=== PATIENT | female | born 1930 | race Caucasian/White ===

== ENCOUNTER 2017-01-30 17:09 | Emergency (ER) | payer MEDICARE ==
--- NOTE | 2017-01-30 17:54 | ERPHSYRPT ---
- History of Present Illness Time Seen by Provider: 01/30/17 17:45 Historian: patient Exam Limitations: no limitations Patient Subjective Stated Complaint: states b/p running high today and left arm feels numb Triage Nursing Assessment: ambulated to room per self. skin w/d, color normal, resp easy. heart tones irregular. denies pain. states has hx of afib and it usually goes away but didn't today. Physician History: 86-year-old white female she arrives she tells the nurses that her blood pressure was running high today she tells me that her approximately 2 PM she began to feel pressure in her anterior chest and felt short of breath while vacuuming she states that the pain lasted approximately 15 minutes or shortness of breath with resolved with rest in the back when she became active again. she states she has no pain at this time patient is on Xaralto. 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 Worsens With: antacids, breathing, coughing, defecating, eating, lying down, morphine, movement, nitroglycerin, oxygen, palpation, rest, aspirin, sitting up, change in position Associated Symptoms: shortness of breath, No nausea, No vomiting, No palpitations, No heartburn, No abdominal pain, No cough, No hurts to breathe, No diaphoresis, No chills, No fever, No fatigue, No weakness, No swelling/lump in chest, No syncope, No rash, No headache, No dizziness, No edema, No back pain Prior Chest Pain/Cardiac Workup: cardiac cath Nitro Today/Relief: no nitro taken today Aspirin Treatment Today: no aspirin today (patient is on Xaralto) Allergies/Adverse Reactions: raloxifene HCl [From Evista] Allergy (Mild, Verified 01/30/17 17:23) Fainting VERTIGO REALLY BAD hydrochlorothiazide Allergy (Verified 01/30/17 17:23) Home Medications: Aspirin EC 81 mg 81 mg PO HS 04/18/12 [History] Lopressor 50 MG 100 mg PO BID 04/18/12 [History] Polyethylene Glycol 3350 17 gm [Miralax Powder 17GM PACKET] 17 gm PO BID 10/21 [History] Protonix 40MG Tablet 40 mg PO DAILY 04/18/12 [History] Atorvastatin Calcium [Lipitor] 40 mg PO DAILY 01/30/17 [History] Furosemide 40 mg [Lasix 40 MG] 40 mg PO DAILY 01/30/17 [History] Losartan Potassium 50 mg [Cozaar 50 MG] 50 mg PO DAILY 01/30/17 [History] Multivitamin [Multivitamins] 1 each PO DAILY 01/30/17 [History] Non-Formulary Drug [Non-Formulary Item] 20 mg PO DAILY 01/30/17 [History] Rivaroxaban [Xarelto] 15 mg PO DAILY 01/30/17 [History] Solifenacin Succinate [Vesicare] 10 mg PO DAILY 01/30/17 [History] Hx Tetanus, Diphtheria Vaccination/Date Given: No Hx Influenza Vaccination/Date Given: Yes Hx Pneumococcal Vaccination/Date Given: Yes (2011) - Review of Systems Constitutional: No Fever, No Chills Eyes: No Symptoms Ears, Nose, & Throat: No Symptoms, No Ear Pain, No Ear Discharge, No Hearing Changes, No Tinnitus, No Nose Pain, No Nose Discharge, No Sinus Drainage, No Epistaxis, No Mouth Pain, No Mouth Swelling, No Loose Teeth, No Throat Pain, No Throat Swelling, No Hoarse, No Painful Swallowing Respiratory: Dyspnea, No Cough Cardiac: Chest Pain, Other (paresthesia left arm), No Edema, No Palpitations, No Syncope, No Orthopnea, No PND Abdominal/Gastrointestinal: No Abdominal Pain, No Nausea, No Vomiting, No Diarrhea Genitourinary Symptoms: No Dysuria Musculoskeletal: No Back Pain, No Neck Pain Skin: No Rash Neurological: No Dizziness, No Focal Weakness, No Sensory Changes Psychological: No Symptoms Endocrine: No Symptoms All Other Systems: Reviewed and Negative - Past Medical History Pertinent Past Medical History: Yes Neurological History: No Pertinent History ENT History: No Pertinent History Cardiac History: Arrhythmia, Coronary Artery Disease, Hypertension Respiratory History: Pneumonia Endocrine Medical History: No Pertinent History Musculoskeletal History: Other GI Medical History: Colitis, Ulcer History: Other Psycho-Social History: No Pertinent History Female Reproductive Disorders: Other Other Medical History: URGE INCONTINENCE; 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 - Past Surgical History Past Surgical History: Yes Neuro Surgical History: No Pertinent History Cardiac: Cardiac Catheterization, Other Respiratory: No Pertinent History Gastrointestinal: Bowel Surgery, Cholecystectomy Genitourinary: No Pertinent History Musculoskeletal: Other Female Surgical History: Hysterectomy Other Surgical History: TOTAL HYSTERECTOMY 1961; LUMBAR LAMINECTOMY 1972; TONSILECTOMY 1972; CERVIACL LAMINECTOMY 1975; LUMBAR LAMINECTOMY 1989; GAVINO 1984; CA-RIGHT SIDE OF NOSE; BACK SURERY 2004; FOOT SURGERY ; HEART. CATH TIMES 2; MEDICAL MENISCUS REPAIR 01-18-11; SPASTIC COLON 1970; PNEUMONIA 1974; HTN; DUODINAL ULCER - Social History Smoking Status: Never smoker Exposure to second hand smoke: Yes Drug Use: none Patient Lives Alone: No - Female History Hx Now: No - Nursing Vital Signs Nursing Vital Signs: Initial Vital Signs Temperature 97.4 F 01/30/17 17:13 Pulse Rate 92 H 01/30/17 17:13 Respiratory Rate 16 01/30/17 17:13 Blood Pressure 146/94 01/30/17 17:13 O2 Sat by Pulse Oximetry 95 01/30/17 17:13 Pain Scale Pain Intensity 0 - Physical Exam General Appearance: no apparent distress, alert Eye Exam: PERRL/EOMI, eyes nml inspection Ears, Nose, Throat Exam: normal ENT inspection, moist mucous membranes Neck Exam: normal inspection, non-tender, supple, full range of motion Respiratory Exam: normal breath sounds, lungs clear, No respiratory distress Cardiovascular Exam: regular rate/rhythm, normal heart sounds Gastrointestinal/Abdomen Exam: soft, No tenderness, No mass Back Exam: normal inspection, No CVA tenderness, No vertebral tenderness Extremity Exam: normal inspection, normal range of motion Neurologic Exam: alert, oriented x 3, cooperative, normal mood/affect, sensation nml, No motor deficits Skin Exam: normal color, warm, dry SpO2 Interpretation: normal (95%) SpO2: 95 Oxygen Delivery: Room Air - Course Nursing assessment & vital signs reviewed: Yes EKG Interpreted by Me: RATE (85 bpm), Sinus Rhythm, NORMAL AXIS, Other (EKG: Sinus rhythm, 85 bpm, normal axis, no acute ST or T wave changes arenoted) - Radiology Exams Chest X-ray Interpretation: Interpreted by me (cxr: no acute disease process noted) Ordered Tests: Active Orders 24 hr Category Date Time Status Storage Battery Inspector STAT Care 01/30/17 18:38 Active EKG-ER Only STAT Care 01/30/17 18:38 Active IV Insertion STAT Care 01/30/17 18:38 Active CHEST 1 VIEW (PORTABLE) Stat Exams 01/30/17 18:38 Taken CBC W DIFF Stat Lab 01/30/17 18:00 Completed CMP Stat Lab 01/30/17 18:00 Completed D-DIMER QUANTITATION Stat Lab 01/30/17 18:00 Completed PROTIME WITH INR Stat Lab 01/30/17 18:00 Completed PTT Stat Lab 01/30/17 18:00 Completed TROPONIN Q3H Lab 01/30/17 18:00 Completed TROPONIN Q3H Lab 01/30/17 21:45 Ordered TROPONIN Q3H Lab 01/31/17 00:45 Ordered TROPONIN Q3H Lab 01/31/17 03:45 Ordered TROPONIN Q3H Lab 01/31/17 06:45 Ordered Lab/Rad Data: Laboratory Result Diagrams 01/30/17 18:00 01/30/17 18:00 Laboratory Results 01/30/17 01/30/17 01/30/17 Range/Units 18:00 18:00 18:00 WBC (4.0-10.5) K/mm3 RBC (4.1-5.4) M/mm3 Hgb (12.0-16.0) gm/dl Hct (35-47) % MCV (78-100) fl MCH (26-32) pg MCHC (32-36) g/dl RDW (11.5-14.0) % Plt Count (150-450) K/mm3 MPV (6-9.5) fl Gran % (36.0-66.0) % Lymphocytes % (24.0-44.0) % Monocytes % (0.0-12.0) % Eosinophils % (0.00-5.0) % Basophils % (0.0-0.4) % Basophils # (0-0.4) INR 1.26 (0.8-3.0) APTT 34.7 (25.3-37.0) SECONDS D-Dimer 295 (0-500) ng/mL Sodium 145 (136-145) mEq/L Potassium 3.4 L (3.5-5.1) mEq/L Chloride 106 (98-107) mEq/L Carbon Dioxide 30.2 (21-32) mEq/L Anion Gap 12.1 (5-15) MEQ/L BUN 17 (9-20) mg/dL Creatinine 1.20 (0.55-1.30) mg/dl Estimated GFR 45 ML/MIN Glucose 122 H (70-110) MG/DL Calcium 10.3 H (8.5-10.1) mg/dL Total Bilirubin 0.50 (0.2-1.0) mg/dL AST 20 (15-37) U/L ALT 24 (12-78) U/L Alkaline Phosphatase 80 (46-116) U/L Troponin I < 0.017 (0.000-0.056) ng/ml Serum Total Protein 7.5 (6.4-8.2) gm/dL Albumin 4.0 (3.4-5.0) g/dL 01/30/17 Range/Units 18:00 WBC 7.3 (4.0-10.5) K/mm3 RBC 4.52 (4.1-5.4) M/mm3 Hgb 13.7 (12.0-16.0) gm/dl Hct 41.0 (35-47) % MCV 90.7 (78-100) fl MCH 30.3 (26-32) pg MCHC 33.4 (32-36) g/dl RDW 13.9 (11.5-14.0) % Plt Count 299 (150-450) K/mm3 MPV 10.9 H (6-9.5) fl Gran % 46.8 (36.0-66.0) % Lymphocytes % 42.8 (24.0-44.0) % Monocytes % 8.2 (0.0-12.0) % Eosinophils % 1.2 (0.00-5.0) % Basophils % 1.0 (0.0-0.4) % Basophils # 0.07 (0-0.4) INR (0.8-3.0) APTT (25.3-37.0) SECONDS D-Dimer (0-500) ng/mL Sodium (136-145) mEq/L Potassium (3.5-5.1) mEq/L Chloride (98-107) mEq/L Carbon Dioxide (21-32) mEq/L Anion Gap (5-15) MEQ/L BUN (9-20) mg/dL Creatinine (0.55-1.30) mg/dl Estimated GFR ML/MIN Glucose (70-110) MG/DL Calcium (8.5-10.1) mg/dL Total Bilirubin (0.2-1.0) mg/dL AST (15-37) U/L ALT (12-78) U/L Alkaline Phosphatase (46-116) U/L Troponin I (0.000-0.056) ng/ml Serum Total Protein (6.4-8.2) gm/dL Albumin (3.4-5.0) g/dL - Progress Progress: improved Air Movement: fair Progress Note: 01/30/17 19:14 86-year-old white female with 15 minutes of anterior chest pressure shortness of breath which occurred at approximately 2:00 this afternoon that occurred while patient was actively vacuuming. Patient has been without pain since arrival labs are essentially normal chest x- ray no acute disease processes noted EKG sinus rhythm [address] or T wave changes noted normal axis Troponin is within normal limits Patient was not given aspirin secondary to the fact that she is on xaralto. Patient is pain free. I have advised that I discussed the patient's case with Dr. Coffman for possible consideration of observation and serial enzymes. However patient refuses to do this. I have also recommended possibly staying for 3 hours and repeating troponin patient refuses this as well, I have told the patient that I cannot rule out cardiac etiology for her problems without at least obtaining a 3 hour repeat troponin and that she could have serious cardiac problems she is aware of this and states that she will not be admitted. Will go ahead and discharge patient have patient rest at home. Will give patient one baby aspirin. Patient is advised to return home rest medications as prescribed by her family doctor and fur tinter. And follow-up with her family doctor and/or fur tinter. She is return for acute distress or for severe symptoms. - Departure Time of Disposition: 19:17 Departure Disposition: Home Clinical Impression: Chest pain Qualifiers: Chest pain type: unspecified Qualified Code(s): R07.9 - Chest pain, unspecified Condition: Fair Critical Care Time: No Referrals: YANET COFFMAN MD [Primary Care Provider] - Additional Instructions: Return home. Rest. Follow-up with your family doctor and/or fur tinter. Return for acute distress or for severe symptoms or any problems.
[2017-01-30 18:43] LABS: Eosinophil % 1.2 % (0.00-5.0); Granulocytes % 46.8 % (36.0-66.0); Lymphocytes % 42.8 % (24.0-44.0); Mean Cell Volume 90.7 fl (78-100); Mean Corpuscular Hemoglobin 30.3 pg (26-32); Mean Platelet Volume 10.9 fl (6-9.5); Monocytes % 8.2 % (0.0-12.0); Platelet Count 299 K/mm3 (150-450); Red Blood Count 4.52 M/mm3 (4.1-5.4); Red Cell Distribution Width 13.9 % (11.5-14.0); White Blood Count 7.3 K/mm3 (4.0-10.5)
[2017-01-30 18:47] LABS: INR 1.26 (0.8-3.0); PROTIME 14.1 SECONDS (9.95-12.35)
[2017-01-30 18:49] LABS: PTT 34.7 SECONDS (25.3-37.0)
[2017-01-30 18:54] LABS: ANION GAP 12.1 MEQ/L (5-15); BILIRUBIN,TOTAL 0.5 mg/dL (0.2-1.0); Carbon Dioxide 30.2 mEq/L (21-32); Potassium 3.4 mEq/L (3.5-5.1); Total Protein 7.5 gm/dL (6.4-8.2)
[2017-01-30] MEDS ORDERED: BABY ASPIRIN 81 MG CHEW ONE (19:17)
[2017-01-30] MEDS ORDERED: BABY ASPIRIN 81 MG CHEW PO ONE (19:18)
[2017-01-30 19:34] VITALS: BP 141/65; PULSE 75; O2SAT 94
--- NOTE | 2017-01-30 22:31 | XRAY ---
Indication: Chest pain. High blood pressure. Comparison: April 18, 2012. Portable chest again demonstrates right mid lung fibrosis/scarring and a few scattered calcified granulomas. No focal infiltrate, consolidation, or large effusion. Heart is not enlarged. Bony thorax intact again with mild degenerative changes. Impression: Stable nonacute chest with chronic features.
[2017-01-31] MEDS ORDERED: BABY ASPIRIN 81 MG CHEW PO SCH (10:00)
== END 2017-01-30 19:45 | disposition home or self-care (01) ==
LOC: ED 17:09
DX: R07.89 Other chest pain (principal); I10 Essential (primary) hypertension; R20.0 Anesthesia of skin; R06.02 Shortness of breath; I25.10 Atherosclerotic heart disease of native coronary artery without angina pectoris; Z79.01 Long term (current) use of anticoagulants; Z79.899 Other long term (current) drug therapy
CPT/HCPCS: 36000; 36415; 71010; 80053; 84484; 85025; 85379; 85610; 85730; 93005; 93041; 99284; A9270-GY

== ENCOUNTER 2017-10-25 16:39 | Inpatient (IN) | payer MEDICARE ==
[2017-10-25] MEDS ORDERED: Colace 100 MG PO PRN (20:32)
[2017-10-25] MEDS: MOTRIN 400 MG PO PRN (22:35)
[2017-10-25] MEDS: Lopressor 50 MG PO SCH (22:35)
[2017-10-25] MEDS: ZOCOR 20MG PO SCH (22:35)
--- NOTE | 2017-10-25 22:43 | XRAY ---
Indication: Short of breath. Atrial fibrillation. Comparison: January 30, 2017. Portable chest now demonstrates right hemidiaphragm elevation with adjacent infiltrate/atelectasis. No focal infiltrate, consolidation, or large effusion. Again a few tiny scattered calcific granulomas. Heart is not enlarged for AP portable technique. Bony thorax intact again with mild osteopenia and degenerative changes. Impression: New right hemidiaphragm elevation with adjacent infiltrate/atelectasis. Correlate clinically.
[2017-10-26] MEDS: Oxy-IR 5 MG PO PRN (04:02)
[2017-10-26] MEDS ORDERED: NON-FORMULARY ITEM (Solifenacin Succinate [Vesicare] 10 MG) PO PRN (07:52)
[2017-10-26] MEDS ORDERED: Ditropan 5 MG PO PRN (08:02)
[2017-10-26] MEDS ORDERED: MEDICATION INTERVENTION MC SCH (08:45)
[2017-10-26] MEDS ORDERED: NON-FORMULARY ITEM (Aspirin [Aspirin] 81 MG) PO SCH (10:00)
[2017-10-26] MEDS ORDERED: Aplisol ID SCH (10:00)
[2017-10-26] MEDS ORDERED: [UNRECOGNIZED DRUG - OTHER] PO SCH (10:00)
[2017-10-26] MEDS ORDERED: NON-FORMULARY ITEM (Famotidine [Pepcid] 40 MG) PO SCH (10:00)
[2017-10-26] MEDS ORDERED: NON-FORMULARY ITEM (Multivitamin [Multivitamins] 1 EACH) PO SCH (10:00)
--- NOTE | 2017-10-26 10:13 | PCM.HP ---
History of Present Illness - Chief Complaint Chief Complaint: Deconditioning r/t total right knee, ileus, a-fib History of Present Illness: is a 86 year old female who is status post right total knee replacement , she has a history of gastroparesis and had a postoperative ileus, also has a history of a fib and has had RVR. has heart rate 120-130 since arrival. no chest pain or palpitations, knee pain is controlled. - Review of Systems Constitutional: No Fever, No Chills Respiratory: No Cough, No Short Of Breath Cardiac: No Chest Pain, No Edema, No Syncope Abdominal/Gastrointestinal: No Abdominal Pain, No Nausea, No Vomiting, No Diarrhea Musculoskeletal: Joint Pain Skin: No Rash All Other Systems: Reviewed and Negative Medications & Allergies Home Medications: Home Medication List Atorvastatin Calcium [Lipitor] 40 mg PO HS 01/30/17 [History Confirmed 10/25/17] Furosemide 40 mg [Lasix 40 MG] 40 mg PO DAILY PRN PRN 01/30/17 [History Confirmed 10/25/17] Losartan Potassium 50 mg [Cozaar 50 MG] 50 mg PO DAILY 01/30/17 [History Confirmed 10/25/17] Multivitamin [Multivitamins] 1 each PO DAILY 01/30/17 [History Confirmed ] Aspirin 81 mg PO DAILY 10/25/17 [History Confirmed 10/25/17] Docusate Sodium 100 mg [Colace 100 MG] 100 mg PO DAILY PRN PRN 10/25/17 [ History Confirmed 10/25/17] Famotidine [Pepcid] 40 mg PO DAILY 10/25/17 [History Confirmed 10/25/17] Ibuprofen 400 mg PO QIDPRN PRN 10/25/17 [History Confirmed 10/25/17] Metoprolol Tartrate [Lopressor] 150 mg PO BID 10/25/17 [History Confirmed ] Mupirocin [Bactroban OINTMENT] 0 gm TOP BID 10/25/17 [History Confirmed ] Non-Formulary Drug [Non-Formulary Item] 20 mg PO DAILY 10/25/17 [History Confirmed 10/25/17] Oxycodone HCl 5 mg Ir [Oxy-IR 5 MG] 10 mg PO Q6HPRN PRN 10/25/17 [History Confirmed 10/25/17] Pantoprazole Sodium [Protonix] 40 mg PO DAILY 10/25/17 [History Confirmed ] Polyethylene Glycol 3350 [Miralax] 17 gm PO DAILY 10/25/17 [History Confirmed ] Rivaroxaban 10 mg Tablet [Xarelto 10 mg Tablet] 15 mg PO HS 10/25/17 [ History Confirmed 10/25/17] Solifenacin Succinate [Vesicare] 10 mg PO DAILY PRN PRN 10/25/17 [History Confirmed 10/25/17] Allergies/Adverse Reactions: Allergies Allergy/AdvReac Type Severity Reaction Status Date / Time raloxifene HCl [From Evista] Allergy Mild Fainting Verified 10/25/17 17:55 hydrochlorothiazide Allergy Verified 10/25/17 17:55 - Past Medical History Past Medical History: Yes Neurological History: No Pertinent History ENT History: No Pertinent History Cardiac History: Arrhythmia, Coronary Artery Disease, Hypertension Respiratory History: Pneumonia Endocrine Medical History: No Pertinent History Musculoskelatal History: Other GI Medical History: Colitis, Ulcer History: Other Pyscho-Social History: No Pertinent History Reproductive Disorders: Other Comment: URGE INCONTINENCE; 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 - Female History Are you now?: No - Past Surgical History Past Surgical History: Yes Neuro Surgical History: No Pertinent History Cardiac History: Cardiac Catheterization, Other Respiratory Surgery: No Pertinent History GI Surgical History: Bowel Surgery, Cholecystectomy Genitourinary Surgical Hx: No Pertinent History Musculskeletal Surgical Hx: Other Female Surgical History: Hysterectomy Other Surgical History: TOTAL HYSTERECTOMY 1961; LUMBAR LAMINECTOMY 1972; TONSILECTOMY 1972; CERVIACL LAMINECTOMY 1975; LUMBAR LAMINECTOMY 1989; GAVINO 1984; CA-RIGHT SIDE OF NOSE; BACK SURERY 2004; FOOT SURGERY ; HEART. CATH TIMES 2; MEDICAL MENISCUS REPAIR 01-18-11; SPASTIC COLON 1970; PNEUMONIA 1974; HTN; DUODINAL ULCER right total knee replacement - Social History Smoking Status: Never smoker Exposure to second hand smoke: Yes Alcohol: None Drug Use: none - Physical Exam Vital Signs: Vital Signs - 24 hr Temp Pulse Resp BP Pulse Ox 10/26/17 07:28 98.3 F 124 H 19 111/65 95 10/25/17 19:42 97.9 F 133 H 18 120/60 96 10/25/17 17:47 97.7 F 128 H 20 147/77 95 10/25/17 17:18 97.7 F 128 H 20 147/77 95 10/25/17 17:08 97.7 F 128 H 20 147/77 95 General Appearance: no apparent distress Neurologic Exam: alert, oriented x 3 Neck Exam: normal inspection, non-tender, supple, full range of motion Respiratory Exam: normal breath sounds, lungs clear, No respiratory distress Cardiovascular Exam: tachycardia, irregular Gastrointestinal/Abdomen Exam: soft, normal bowel sounds, No tenderness, No mass Extremity Exam: normal inspection, normal range of motion, pelvis stable Skin Exam: normal color, warm, dry, No rash Results - Radiology Impressions Radiology Exams & Impressions: Radiology Procedures Category Date Time Status CHEST 1 VIEW (PORTABLE) Routine Exams 10/25/17 18:30 Completed Assessment/Plan (1) Atrial fibrillation with RVR Current Visit: Yes Status: Acute Assessment & Plan: will add digoxin 0.125mg daily for rate control, on large dose of metoprolol with persistent tachycardia and bp won't allow increase in beta [place] Code(s): I48.91 - UNSPECIFIED ATRIAL FIBRILLATION (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
[2017-10-26] MEDS: Lopressor 50 MG PO SCH ×2 (10:42→22:06)
[2017-10-26] MEDS: Lanoxin 0.125MG TABLET PO SCH (10:42)
[2017-10-26] MEDS: THERAGRAN MULTIVITAMIN PO SCH (10:43)
[2017-10-26] MEDS: Protonix 40MG Tablet PO SCH (10:43)
[2017-10-26] MEDS: Pepcid 20 MG PO SCH (10:43)
[2017-10-26] MEDS: Cozaar 50 MG PO SCH (10:43)
[2017-10-26] MEDS: ECOTRIN 81 MG PO SCH (10:43)
[2017-10-26] MEDS: Miralax Powder 17GM PACKET PO SCH (10:48)
[2017-10-26] MEDS: Bactroban OINTMENT TOP SCH ×2 (14:39→22:08)
[2017-10-26] MEDS ORDERED: ZOFRAN ODT 4 MG PO PRN (21:05)
[2017-10-26] MEDS: XARELTO 10 MG TABLET PO SCH (22:03)
[2017-10-26] MEDS: ZOCOR 20MG PO SCH (22:07)
[2017-10-27] MEDS: Oxy-IR 5 MG PO PRN (09:37)
[2017-10-27] MEDS: Miralax Powder 17GM PACKET PO SCH (09:50)
[2017-10-27] MEDS: THERAGRAN MULTIVITAMIN PO SCH (09:51)
[2017-10-27] MEDS: Bactroban OINTMENT TOP SCH ×2 (09:51→22:12)
[2017-10-27] MEDS: Lopressor 50 MG PO SCH ×2 (09:52→22:12)
[2017-10-27] MEDS: Lanoxin 0.125MG TABLET PO SCH (09:52)
[2017-10-27] MEDS: Pepcid 20 MG PO SCH (09:52)
[2017-10-27] MEDS: Cozaar 50 MG PO SCH (10:01)
[2017-10-27] MEDS: ECOTRIN 81 MG PO SCH (10:01)
[2017-10-27] MEDS: Protonix 40MG Tablet PO SCH (10:01)
[2017-10-27] MEDS ORDERED: Lopressor 50 MG PO ONE (12:09)
[2017-10-27] MEDS: MOTRIN 400 MG PO PRN (19:00)
[2017-10-27] MEDS: XARELTO 10 MG TABLET PO SCH (22:13)
[2017-10-27] MEDS: ZOCOR 20MG PO SCH (22:13)
[2017-10-28 05:58] LABS: BASOPHIL % 0.7 % (0.0-0.4); Basophil (Absolute #) 0.06 (0-0.4); Eosinophil % 1.1 % (0.00-5.0); Eosinophil (Absolute #) 0.09 (0-0.5); Granulocyte Absolute (ANC) 5.61 (1.4-6.9); Granulocytes % 67.4 % (36.0-66.0); Hematocrit 31.8 % (35-47); Hemoglobin 10.5 gm/dl (12.0-16.0); Lymphocyte (Absolute #) 1.74 (1.0-4.6); Lymphocytes % 20.9 % (24.0-44.0); Mean Cell Volume 92.4 fl (78-100); Mean Corpuscular Hemoglobin 30.5 pg (26-32); Mean Platelet Volume 9.4 fl (6-9.5); Monocyte (Absolute #) 0.82 (0.0-1.3); Monocytes % 9.9 % (0.0-12.0); Platelet Count 418 K/mm3 (150-450); Red Blood Count 3.44 M/mm3 (4.1-5.4); Red Cell Distribution Width 14.9 % (11.5-14.0); White Blood Count 8.3 K/mm3 (4.0-10.5)
[2017-10-28 06:26] LABS: ANION GAP 9.1 MEQ/L (5-15); BLOOD UREA NITROGEN 16 mg/dL (7-17); CHLORIDE 100 mmol/L (98-107); Calcium 9.8 mg/dL (8.4-10.2); Carbon Dioxide 30 mmol/L (22-30); Creatinine 1 0.75 mg/dL (0.52-1.04); Glucose 115 mg/dL (74-106); Potassium 3.6 mmol/L (3.5-5.1); SODIUM 135 mmol/L (137-145)
--- NOTE | 2017-10-28 07:59 | PCM.NOTE ---
Date and Time: 10/28/17 0757 Subjective Assessment: doing well, able to get up out of bed on her own now. heart rate is better controlled Objective Exam General Appearance: no apparent distress, alert Skin Exam: normal color, warm, dry Respiratory Exam: normal breath sounds, lungs clear, No respiratory distress Cardiovascular Exam: tachycardia, irregular Gastrointestinal/Abdomen Exam: soft, No tenderness, No mass Extremity Exam: normal inspection, normal range of motion, other (right knee bruising, dressing c/d/i) OBJECTIVE DATA Vital Signs: Vital Signs - 24 hr Temp Pulse Resp BP BP Pulse Ox 10/27/17 20:07 97.9 F 112 H 20 135/60 96 10/27/17 09:52 126 H 128/64 Pain Assessment - Last Documented Pain Intensity 3 [facility]ake and Output: Intake & Output 10/25/17 10/26/17 10/27/17 10/28/17 11:59 11:59 11:59 11:59 Intake Total 460 1240 660 Balance 460 1240 660 Weight 93.9 kg Lab Results: Lab Results-Last 24 Hours 10/28/17 10/28/17 10/28/17 Range/Units 05:45 05:45 05:45 WBC 8.3 (4.0-10.5) K/mm3 RBC 3.44 L (4.1-5.4) M/mm3 Hgb 10.5 L (12.0-16.0) gm/dl Hct 31.8 L (35-47) % MCV 92.4 (78-100) fl MCH 30.5 (26-32) pg MCHC 33.0 (32-36) g/dl RDW 14.9 H (11.5-14.0) % Plt Count 418 (150-450) K/mm3 MPV 9.4 (6-9.5) fl Gran % 67.4 H (36.0-66.0) % Eos # (Auto) 0.09 (0-0.5) Absolute Lymphs (auto) 1.74 (1.0-4.6) Absolute Monos (auto) 0.82 (0.0-1.3) Lymphocytes % 20.9 L (24.0-44.0) % Monocytes % 9.9 (0.0-12.0) % Eosinophils % 1.1 (0.00-5.0) % Basophils % 0.7 (0.0-0.4) % Absolute Granulocytes 5.61 (1.4-6.9) Basophils # 0.06 (0-0.4) Sodium 135 L (137-145) mmol/L Potassium 3.6 (3.5-5.1) mmol/L Chloride 100 (98-107) mmol/L Carbon Dioxide 30 (22-30) mmol/L Anion Gap 9.1 (5-15) MEQ/L BUN 16 (7-17) mg/dL Creatinine 0.75 (0.52-1.04) mg/dL Estimated GFR > 60.0 ML/MIN Glucose 115 H (74-106) mg/dL Calcium 9.8 (8.4-10.2) mg/dL Digoxin 0.7 L (0.8-1.9) ng/mL Assessment/Plan (1) Atrial fibrillation with RVR Current Visit: Yes Status: Acute Assessment & Plan: better controlled with increase in metoprolol per Dr Graham Code(s): I48.91 - UNSPECIFIED ATRIAL FIBRILLATION (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
[2017-10-28] MEDS: Lanoxin 0.125MG TABLET PO SCH (09:23)
[2017-10-28] MEDS: Cozaar 50 MG PO SCH (09:23)
[2017-10-28] MEDS: Miralax Powder 17GM PACKET PO SCH (09:23)
[2017-10-28] MEDS: Pepcid 20 MG PO SCH (09:23)
[2017-10-28] MEDS: Lopressor 50 MG PO SCH ×2 (09:23→21:54)
[2017-10-28] MEDS: ECOTRIN 81 MG PO SCH (09:24)
[2017-10-28] MEDS: Protonix 40MG Tablet PO SCH (09:24)
[2017-10-28] MEDS: THERAGRAN MULTIVITAMIN PO SCH (09:24)
[2017-10-28] MEDS: Bactroban OINTMENT TOP SCH ×2 (09:24→21:55)
[2017-10-28] MEDS: MOTRIN 400 MG PO PRN (10:06)
[2017-10-28] MEDS: Oxy-IR 5 MG PO PRN ×2 (14:23→20:08)
[2017-10-28] MEDS: XARELTO 10 MG TABLET PO SCH (21:53)
[2017-10-28] MEDS: ZOCOR 20MG PO SCH (21:54)
[2017-10-29] MEDS: Oxy-IR 5 MG PO PRN (09:05)
[2017-10-29] MEDS: Lopressor 50 MG PO SCH ×2 (09:05→21:12)
[2017-10-29] MEDS: Miralax Powder 17GM PACKET PO SCH (09:05)
[2017-10-29] MEDS: Lanoxin 0.125MG TABLET PO SCH (09:05)
[2017-10-29] MEDS: ECOTRIN 81 MG PO SCH (09:06)
[2017-10-29] MEDS: Cozaar 50 MG PO SCH (09:06)
[2017-10-29] MEDS: MOTRIN 400 MG PO PRN ×3 (09:06→21:11)
[2017-10-29] MEDS: Pepcid 20 MG PO SCH (09:06)
[2017-10-29] MEDS: Bactroban OINTMENT TOP SCH ×2 (09:07→21:13)
[2017-10-29] MEDS: THERAGRAN MULTIVITAMIN PO SCH (09:07)
[2017-10-29] MEDS: Protonix 40MG Tablet PO SCH (09:07)
[2017-10-29] MEDS: ZOCOR 20MG PO SCH (21:11)
[2017-10-29] MEDS: XARELTO 10 MG TABLET PO SCH (21:12)
[2017-10-30] MEDS: Cozaar 50 MG PO SCH (09:16)
[2017-10-30] MEDS: Protonix 40MG Tablet PO SCH (09:16)
[2017-10-30] MEDS: ECOTRIN 81 MG PO SCH (09:16)
[2017-10-30] MEDS: Lanoxin 0.125MG TABLET PO SCH (09:16)
[2017-10-30] MEDS: Pepcid 20 MG PO SCH (09:16)
[2017-10-30] MEDS: MOTRIN 400 MG PO PRN (09:17)
[2017-10-30] MEDS: Lopressor 50 MG PO SCH ×2 (09:17→21:11)
[2017-10-30] MEDS: THERAGRAN MULTIVITAMIN PO SCH (09:17)
[2017-10-30] MEDS: Miralax Powder 17GM PACKET PO SCH (09:18)
[2017-10-30] MEDS: Bactroban OINTMENT TOP SCH ×2 (09:20→21:11)
[2017-10-30] MEDS: Oxy-IR 5 MG PO PRN (13:32)
[2017-10-30] MEDS: ZOCOR 20MG PO SCH (21:12)
[2017-10-30] MEDS: XARELTO 10 MG TABLET PO SCH (21:13)
[2017-10-31] MEDS: Oxy-IR 5 MG PO PRN (09:13)
[2017-10-31] MEDS: Lopressor 50 MG PO SCH ×2 (09:54→21:07)
[2017-10-31] MEDS: THERAGRAN MULTIVITAMIN PO SCH (09:56)
[2017-10-31] MEDS: Lanoxin 0.125MG TABLET PO SCH (09:56)
[2017-10-31] MEDS: Cozaar 50 MG PO SCH (09:56)
[2017-10-31] MEDS: ECOTRIN 81 MG PO SCH (09:56)
[2017-10-31] MEDS: Bactroban OINTMENT TOP SCH (09:57)
[2017-10-31] MEDS: Pepcid 20 MG PO SCH (09:58)
[2017-10-31] MEDS: Protonix 40MG Tablet PO SCH (09:58)
[2017-10-31] MEDS: Miralax Powder 17GM PACKET PO SCH (09:58)
[2017-10-31] MEDS: XARELTO 10 MG TABLET PO SCH (21:07)
[2017-10-31] MEDS: ZOCOR 20MG PO SCH (21:08)
[2017-10-31] MEDS: MOTRIN 400 MG PO PRN (21:08)
[2017-11-01] MEDS: Oxy-IR 5 MG PO PRN ×2 (07:43→14:36)
[2017-11-01] MEDS: Lanoxin 0.125MG TABLET PO SCH (07:43)
[2017-11-01] MEDS: Protonix 40MG Tablet PO SCH (07:44)
[2017-11-01] MEDS: Cozaar 50 MG PO SCH (07:44)
[2017-11-01] MEDS: Pepcid 20 MG PO SCH (07:44)
[2017-11-01] MEDS: ECOTRIN 81 MG PO SCH (07:44)
[2017-11-01] MEDS: Lopressor 50 MG PO SCH ×2 (07:44→21:44)
[2017-11-01] MEDS: THERAGRAN MULTIVITAMIN PO SCH (07:44)
[2017-11-01] MEDS: Miralax Powder 17GM PACKET PO SCH (07:45)
[2017-11-01] MEDS ORDERED: TYLENOL 325 MG PO PRN (18:21)
[2017-11-01] MEDS: XARELTO 10 MG TABLET PO SCH (21:42)
[2017-11-01] MEDS: ZOCOR 20MG PO SCH (21:44)
[2017-11-02] MEDS: Cozaar 50 MG PO SCH (10:10)
[2017-11-02] MEDS: Lanoxin 0.125MG TABLET PO SCH (10:10)
[2017-11-02] MEDS: Protonix 40MG Tablet PO SCH (10:10)
[2017-11-02] MEDS: ECOTRIN 81 MG PO SCH ×3 (10:10→10:51)
[2017-11-02] MEDS: Pepcid 20 MG PO SCH (10:10)
[2017-11-02] MEDS: Lopressor 50 MG PO SCH ×2 (10:10→21:12)
[2017-11-02] MEDS: THERAGRAN MULTIVITAMIN PO SCH (10:10)
[2017-11-02] MEDS: Miralax Powder 17GM PACKET PO SCH (10:11)
[2017-11-02] MEDS: Oxy-IR 5 MG PO PRN ×3 (10:49→23:28)
[2017-11-02] MEDS: XARELTO 10 MG TABLET PO SCH (21:13)
[2017-11-02] MEDS: ZOCOR 20MG PO SCH (21:13)
[2017-11-03] MEDS: Miralax Powder 17GM PACKET PO SCH (04:30)
[2017-11-03] MEDS: Lanoxin 0.125MG TABLET PO SCH (09:03)
[2017-11-03] MEDS: Pepcid 20 MG PO SCH (09:03)
[2017-11-03] MEDS: Protonix 40MG Tablet PO SCH (09:03)
[2017-11-03] MEDS: ECOTRIN 81 MG PO SCH (09:04)
[2017-11-03] MEDS: Lopressor 50 MG PO SCH ×2 (09:04→21:20)
[2017-11-03] MEDS: THERAGRAN MULTIVITAMIN PO SCH (09:04)
[2017-11-03] MEDS: Cozaar 50 MG PO SCH (09:04)
[2017-11-03] MEDS: Oxy-IR 5 MG PO PRN (16:28)
[2017-11-03] MEDS: ZOCOR 20MG PO SCH (21:20)
[2017-11-03] MEDS: XARELTO 10 MG TABLET PO SCH (21:20)
[2017-11-04] MEDS: Oxy-IR 5 MG PO PRN ×3 (03:32→15:19)
--- NOTE | 2017-11-04 08:38 | PCM.DS ---
Discharge Summary Date of Admission: 10/25/17 16:39 Admitting Physician: YANET COFFMAN Consults: Consults on Case 10/27/17 11:35 Cardiology Consult [Notify Judge of Admit] ROUTINE Primary Care Provider: YANET COFFMAN Allergies Allergies raloxifene HCl [From Evista] Allergy (Mild, Verified 10/25/17 17:55) Fainting VERTIGO hydrochlorothiazide Allergy (Verified 10/25/17 17:55) passed out Hospital Summary - Hospital Course Hospital Course: patient came to rehab following right total knee, had complications with ileus postoperatively and with a fib with RVR. she has progressed well with therapy and feels good. - Vitals & Intake/Output Vital Signs: Vital Signs Temperature 97.8 F 11/03/17 19:41 Pulse Rate 128 H 11/03/17 19:41 Respiratory Rate 19 11/03/17 19:41 Blood Pressure 123/68 11/03/17 19:41 O2 Sat by Pulse Oximetry 96 11/03/17 19:41 Intake & Output: Intake & Output 11/01/17 11/02/17 11/03/17 11/04/17 11:59 11:59 11:59 11:59 Intake Total 860 1040 1380 760 Balance 860 1040 1380 760 - Lab Result Diagrams: 10/28/17 05:45 10/28/17 05:45 - Procedures and Test Procedures and Tests throughout Hospitalization: Therapy Orders & Screens 10/25/17 17:18 OT Eval and Treat ( Order) ROUTINE Comment: Consulting Provider: Physician Instructions: Reason For Exam: Evaluate: Yes Treat: Yes Diagnosis: Deconditioning r/t total right knee, ileus, a-fib 10/25/17 17:19 PT Eval & Treat ( Order) ROUTINE Reason for Eval:: S/P total right knee Diagnosis: Deconditioning r/t total right knee, ileus, a-fib 10/25/17 18:20 OT Screen per Nursing Assess ONCE Comment: Protocol Order Physician Instructions: Greater than 3 points order OT Admission Screening Reason For Exam: Triggered on Admission Diagnosis: Deconditioning r/t total right knee, ileus, a-fib Open Wound/Cellutlitis/Pressure Ulcers: No Acute Fx/ORIF/Change in wt bearing status: Yes Severe MUSCULOSKELETAL pain: No ADL Dysfunction: Yes Acute CVA w/Hemiparesis/Hemiplegia: No Decreased Functional Mobility/Strength: Yes Sprain/Strain: No Acute Post-op Mobility Dysfunction: Yes Total Points: 12 PT Screen per Nursing Assess ONCE Comment: Protocol Order Physician Instructions: Greater than 3 points order PT Admission Screenin Reason For Exam: Triggered on Admission Diagnosis: Deconditioning r/t total right knee, ileus, a-fib Open Wound/Cellutlitis/Pressure Ulcers: No Acute Fx/ORIF/Change in wt bearing status: Yes Severe MUSCULOSKELETAL pain: No ADL Dysfunction: Yes Acute CVA w/Hemiparesis/Hemiplegia: No Decreased Functional Mobility/Strength: Yes Sprain/Strain: No Acute Post-op Mobility Dysfunction: Yes Total Points: 12 Discharge Exam General Appearance: no apparent distress, alert Respiratory Exam: normal breath sounds, lungs clear, No respiratory distress Cardiovascular Exam: regular rate/rhythm, normal heart sounds Gastrointestinal/Abdomen Exam: soft, No tenderness, No mass Extremity Exam: normal inspection, normal range of motion, other (dressing clean , dry, intact to right knee) Final Diagnosis/Problem List - Final Discharge Diagnosis/Problem (1) Atrial fibrillation with RVR Current Visit: Yes Status: Acute (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 Current Visit: Yes Status: Acute (3) Gastroparesis Current Visit: Yes Status: Acute - Discharge Disposition: Home, Self-Care Condition: Stable Prescriptions: Continue Atorvastatin Calcium [Lipitor] 40 mg PO HS Losartan Potassium 50 mg [Cozaar 50 MG] 50 mg PO DAILY Furosemide 40 mg [Lasix 40 MG] 40 mg PO DAILY PRN PRN PRN Reason: water retention Multivitamin [Multivitamins] 1 each PO DAILY Docusate Sodium 100 mg [Colace 100 MG] 100 mg PO DAILY PRN PRN PRN Reason: Constipation Aspirin 81 mg PO DAILY Famotidine [Pepcid] 40 mg PO DAILY Rivaroxaban 10 mg Tablet [Xarelto 10 mg Tablet] 15 mg PO HS Polyethylene Glycol 3350 [Miralax] 17 gm PO DAILY Pantoprazole Sodium [Protonix] 40 mg PO DAILY Oxycodone HCl 5 mg Ir [Oxy-IR 5 MG] 10 mg PO Q6HPRN PRN PRN Reason: Pain Mupirocin [Bactroban OINTMENT] 0 gm TOP BID Metoprolol Tartrate [Lopressor] 150 mg PO BID Ibuprofen 400 mg PO QIDPRN PRN PRN Reason: Pain Solifenacin Succinate [Vesicare] 10 mg PO DAILY PRN PRN PRN Reason: bladder Non-Formulary Drug [Non-Formulary Item] 20 mg PO DAILY Follow up with: THOM MARSH [NON-STAFF PHY W/O PRIVILEGES] - 11/27/17 1:15 pm YANET COFFMAN MD [Primary Care Provider] - 1 Week
[2017-11-04] MEDS: Lanoxin 0.125MG TABLET PO SCH (09:04)
[2017-11-04] MEDS: THERAGRAN MULTIVITAMIN PO SCH (09:05)
[2017-11-04] MEDS: Pepcid 20 MG PO SCH (09:05)
[2017-11-04] MEDS: Miralax Powder 17GM PACKET PO SCH (09:05)
[2017-11-04] MEDS: ECOTRIN 81 MG PO SCH (09:05)
[2017-11-04] MEDS: Cozaar 50 MG PO SCH (09:05)
[2017-11-04] MEDS: Lopressor 50 MG PO SCH ×2 (09:05→22:21)
[2017-11-04] MEDS: Protonix 40MG Tablet PO SCH (09:05)
[2017-11-04] MEDS: XARELTO 10 MG TABLET PO SCH (22:20)
[2017-11-04] MEDS: ZOCOR 20MG PO SCH (22:21)
[2017-11-05] MEDS: Lopressor 50 MG PO SCH (08:10)
[2017-11-05] MEDS: ECOTRIN 81 MG PO SCH (08:11)
[2017-11-05] MEDS: Protonix 40MG Tablet PO SCH (08:11)
[2017-11-05] MEDS: Lanoxin 0.125MG TABLET PO SCH (08:11)
[2017-11-05] MEDS: Cozaar 50 MG PO SCH (08:11)
[2017-11-05] MEDS: Pepcid 20 MG PO SCH (08:11)
[2017-11-05 08:12] VITALS: BP 145/77
[2017-11-05] MEDS: Oxy-IR 5 MG PO PRN (08:12)
[2017-11-05] MEDS: Miralax Powder 17GM PACKET PO SCH (08:12)
[2017-11-05] MEDS: THERAGRAN MULTIVITAMIN PO SCH (08:12)
[2017-11-05 08:24] VITALS: PULSE 122; O2SAT 96
[2017-11-06] MEDS ORDERED: Aplisol ID SCH (10:00)
== END 2017-11-05 10:20 | disposition home or self-care (01) | DRG 310 ==
LOC: MED SURG 16:39 → UNDOADMIN 16:39
PROVIDERS: ADMIT Family Medicine; ATTEND Family Medicine
DX: I48.91 Unspecified atrial fibrillation (principal); Z96.651 Presence of right artificial knee joint; K31.84 Gastroparesis; I10 Essential (primary) hypertension; I25.10 Atherosclerotic heart disease of native coronary artery without angina pectoris; N39.41 Urge incontinence; Z87.442 Personal history of urinary calculi
CPT/HCPCS: 36415; 71045; 80048; 80162; 85025; Q0162; 97110-GP; A9270-GY

== ENCOUNTER 2018-01-30 06:28 | Emergency (ER) | payer MEDICARE ==
--- NOTE | 2018-01-30 07:09 | ERPHSYRPT ---
- History of Present Illness Time Seen by Provider: 01/30/18 07:04 Source: patient, family Exam Limitations: no limitations Patient Subjective Stated Complaint: pt states she fell last saturday. states she has had increased pain and swelling in her lt thigh since. Triage Nursing Assessment: pt alert and oriented, asnwers questions approp. pt ambulatory, slow while holding husbands hand. respirations nonlabored with lungs cta. bruising noted to lt mid back, lt outer thigh, lt inner posterior thigh. lt posterior leg above knee, lt elbow. pedal pulse, cap refill to lt wnl. Physician History: pt fell earlier this week but still has unsteadiness an did hit her head and is on xarelto for afib since last summer after right knee replacement ecchymosis and tenderness Left hip - right knee nontender with full ROM no LOC no CP but need to consider cardiac as a precip cause since pt states she just felt herself falling back - no tripping. 2 prior episodes caught by but thought to be hip giving out at those times; Cervical spine nontender with full ROM Occurred: days ago Reason for Fall: lost balance, fell from standing pos Injuries/Pain Location: head, lower extremity Loss of Consciousness: no loss of consciousness Allergies/Adverse Reactions: raloxifene HCl [From Evista] Allergy (Mild, Verified 01/30/18 06:53) Fainting VERTIGO hydrochlorothiazide Allergy (Verified 01/30/18 06:53) passed out morphine Adverse Reaction (Verified 01/30/18 06:53) Home Medications: Atorvastatin Calcium [Lipitor] 40 mg PO HS 01/30/17 [History] Furosemide 40 mg [Lasix 40 MG] 40 mg PO DAILY PRN PRN 01/30/17 [History] Losartan Potassium 50 mg [Cozaar 50 MG] 50 mg PO DAILY 01/30/17 [History] Multivitamin [Multivitamins] 1 each PO DAILY 01/30/17 [History] Aspirin 81 mg PO DAILY 10/25/17 [History] Docusate Sodium 100 mg [Colace 100 MG] 100 mg PO DAILY 10/25/17 [History] Famotidine [Pepcid] 40 mg PO DAILY 10/25/17 [History] Ibuprofen 400 mg PO QIDPRN PRN 10/25/17 [History] Metoprolol Tartrate [Lopressor] 100 mg PO BID 10/25/17 [History] Non-Formulary Drug [Non-Formulary Item] 20 mg PO DAILY 10/25/17 [History] Pantoprazole Sodium [Protonix] 40 mg PO DAILY 10/25/17 [History] Polyethylene Glycol 3350 [Miralax] 17 gm PO DAILY 10/25/17 [History] Rivaroxaban 10 mg Tablet [Xarelto 10 mg Tablet] 15 mg PO HS 10/25/17 [ History] Solifenacin Succinate [Vesicare] 10 mg PO DAILY PRN PRN 10/25/17 [History] Amiodarone HCl 200 mg [Cordarone 200 MG] 200 mg PO BID 01/30/18 [History] Amlodipine Besylate 5 mg [Norvasc 5 mg] 2.5 mg PO DAILY 01/30/18 [History] Hx Tetanus, Diphtheria Vaccination/Date Given: Yes Hx Influenza Vaccination/Date Given: Yes Hx Pneumococcal Vaccination/Date Given: Yes (2011) Immunizations Up to Date: No - Review of Systems Constitutional: No Fever, No Chills Eyes: No Symptoms Ears, Nose, & Throat: No Symptoms Respiratory: No Cough, No Dyspnea Cardiac: No Chest Pain, No Edema, No Syncope Abdominal/Gastrointestinal: No Abdominal Pain, No Nausea, No Vomiting, No Diarrhea Genitourinary Symptoms: No Dysuria Musculoskeletal: Fall, Injury, Joint Pain, Joint Swelling, No Back Pain, No Neck Pain Skin: No Rash Neurological: Other (loss of balance), No Dizziness, No Focal Weakness, No Sensory Changes Psychological: No Symptoms Endocrine: No Symptoms Immunological/Allergic: No Symptoms All Other Systems: Reviewed and Negative - Past Medical History Pertinent Past Medical History: Yes Neurological History: No Pertinent History ENT History: No Pertinent History Cardiac History: Arrhythmia, Coronary Artery Disease, Hypertension Respiratory History: Pneumonia Endocrine Medical History: No Pertinent History Musculoskeletal History: Other GI Medical History: Colitis, Ulcer History: Other Psycho-Social History: No Pertinent History Female Reproductive Disorders: Other Other Medical History: URGE INCONTINENCE; 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, afib - Past Surgical History Past Surgical History: Yes Neuro Surgical History: No Pertinent History Cardiac: Cardiac Catheterization, Other Respiratory: No Pertinent History Gastrointestinal: Bowel Surgery, Cholecystectomy Genitourinary: No Pertinent History Musculoskeletal: Other Female Surgical History: Hysterectomy Other Surgical History: TOTAL HYSTERECTOMY 1961; LUMBAR LAMINECTOMY 1972; TONSILECTOMY 1972; CERVIACL LAMINECTOMY 1975; LUMBAR LAMINECTOMY 1989; GAVINO 1984; CA-RIGHT SIDE OF NOSE; BACK SURERY 2004; FOOT SURGERY ; HEART. CATH TIMES 2; MEDICAL MENISCUS REPAIR 01-18-11; SPASTIC COLON 1970; PNEUMONIA 1974; HTN; DUODINAL ULCER right total knee replacement - Social History Smoking Status: Never smoker Exposure to second hand smoke: No Drug Use: none Patient Lives Alone: No - Nursing Vital Signs Nursing Vital Signs: Initial Vital Signs Temperature 97.5 F 01/30/18 06:41 Pulse Rate 68 01/30/18 06:41 Respiratory Rate 18 01/30/18 06:41 Blood Pressure 161/78 01/30/18 06:41 O2 Sat by Pulse Oximetry 97 01/30/18 06:41 Pain Scale Pain Intensity 3 - [place] Coma Score Best Eye Response ([place]): (4) open spontaneously Best Verbal Response ([place]): (5) oriented Best Motor Response ([place]): (6) obeys commands [place] Total: 15 - Physical Exam General Appearance: no apparent distress, alert Head Injury: contusions (bsack of occiput) Eye Exam: PERRL/EOMI ENT Exam: airway nml Neck Exam: normal inspection, No tenderness Respiratory/Chest Exam: normal breath sounds, No chest tenderness, No respiratory distress Cardiovascular Exam: normal heart sounds, regular rate/rhythm Gastrointestinal Exam: soft, No tenderness, No distention, No guarding, No ecchymosis Back Exam: normal inspection, No vertebral tenderness Extremity Exam: pelvis stable, evidence of injury, hip tenderness (left only ), No deformities Peripheral Pulses: carotid (R): 2+, carotid (L): 2+, femoral (R): 2+, femoral (L ): 2+, dorsalis-pedis (R): 2+, dorsalis-pedis (L): 2+ Neurologic Exam: alert, oriented x 3, cooperative, sensation nml, No motor deficits Skin Exam: normal color, warm, dry SpO2 Interpretation: normal SpO2: 97 Oxygen Delivery: Room Air - Course Nursing assessment & vital signs reviewed: Yes EKG Interpreted by Me: Sinus Rhythm, Left [place] Deviation, LAFB, Non-specific ST Changes - Radiology Exams Left Hip X-ray Interpretation: Interpreted by me, Reviewed by me, Other (no obvious acute fx, old appearing avulsion right nontender pubis) - CT Exams Head CT Interpretation: Tele-radiologist Report, No/Intracranial Hemorrhag Ordered Tests: Active Orders 24 hr Category Date Time Status EKG-ER Only STAT Care 01/30/18 07:11 Active HEAD WITHOUT CONTRAST [CT] Stat Exams 01/30/18 07:13 Taken HIPS PAVITHRA(2V) INCL PEL IF DONE Stat Exams 01/30/18 07:15 Taken AMYLASE Stat Lab 01/30/18 07:33 Completed CBC W DIFF Stat Lab 01/30/18 07:33 Completed CMP Stat Lab 01/30/18 07:33 Completed Lactic Acid Stat Lab 01/30/18 07:40 Completed NT PRO BNP Stat Lab 01/30/18 07:33 Completed TROPONIN Q3H Lab 01/30/18 07:33 Completed TROPONIN Q3H Lab 01/30/18 10:15 Ordered TROPONIN Q3H Lab 01/30/18 13:15 Ordered TROPONIN Q3H Lab 01/30/18 16:15 Ordered TROPONIN Q3H Lab 01/30/18 19:15 Ordered UA W/RFX UR CULTURE Stat Lab 01/30/18 07:51 Completed Lab/Rad Data: Laboratory Result Diagrams 01/30/18 07:33 01/30/18 07:33 Laboratory Results 01/30/18 01/30/18 01/30/18 Range/Units 07:51 07:40 07:33 WBC (4.0-10.5) K/mm3 RBC (4.1-5.4) M/mm3 Hgb (12.0-16.0) gm/dl Hct (35-47) % MCV (78-100) fl MCH (26-32) pg MCHC (32-36) g/dl RDW (11.5-14.0) % Plt Count (150-450) K/mm3 MPV (6-9.5) fl Gran % (36.0-66.0) % Eos # (Auto) (0-0.5) Absolute Lymphs (auto) (1.0-4.6) Absolute Monos (auto) (0.0-1.3) Lymphocytes % (24.0-44.0) % Monocytes % (0.0-12.0) % Eosinophils % (0.00-5.0) % Basophils % (0.0-0.4) % Absolute Granulocytes (1.4-6.9) Basophils # (0-0.4) Sodium (137-145) mmol/L Potassium (3.5-5.1) mmol/L Chloride (98-107) mmol/L Carbon Dioxide (22-30) mmol/L Anion Gap (5-15) MEQ/L BUN (7-17) mg/dL Creatinine (0.52-1.04) mg/dL Estimated GFR ML/MIN Glucose (74-106) mg/dL Lactic Acid 1.4 (0.4-2.0) Calcium (8.4-10.2) mg/dL Total Bilirubin (0.2-1.3) mg/dL AST (14-36) U/L ALT (0-35) U/L Alkaline Phosphatase (38-126) U/L Troponin I < 0.012 (0.000-0.034) ng/mL NT-Pro-B Natriuret Pep (0-1800) pg/mL Serum Total Protein (6.3-8.2) g/dL Albumin (3.5-5.0) g/dL Amylase (30-110) U/L Urine Color YELLOW (YELLOW) Urine Appearance SLIGHTLY CLOUDY (CLEAR) Urine pH 5.0 (5-6) Ur Specific [place] 1.023 (1.005-1.025) Urine Protein NEGATIVE (Negative) Urine Ketones NEGATIVE (NEGATIVE) Urine Blood NEGATIVE (0-5) Vasile/ul Urine Nitrite NEGATIVE (NEGATIVE) Urine Bilirubin NEGATIVE (NEGATIVE) Urine Urobilinogen NEGATIVE (0-1) mg/dL Ur Leukocyte Esterase NEGATIVE (NEGATIVE) Urine WBC (Auto) 3-5 (0-5) /HPF Urine RBC (Auto) 0-2 (0-2) /HPF U Epithel Cells (Auto) RARE (FEW) /HPF Urine Mucus (Auto) SLIGHT (NEGATIVE) /HPF Urine Culture Reflexed NO (NO) Urine Glucose NEGATIVE (NEGATIVE) mg/dL 01/30/18 01/30/18 Range/Units 07:33 07:33 WBC 7.3 (4.0-10.5) K/mm3 RBC 4.28 (4.1-5.4) M/mm3 Hgb 12.6 (12.0-16.0) gm/dl Hct 39.3 (35-47) % MCV 91.8 (78-100) fl MCH 29.4 (26-32) pg MCHC 32.1 (32-36) g/dl RDW 15.8 H (11.5-14.0) % Plt Count 272 (150-450) K/mm3 MPV 10.6 H (6-9.5) fl Gran % 65.4 (36.0-66.0) % Eos # (Auto) 0.07 (0-0.5) Absolute Lymphs (auto) 1.65 (1.0-4.6) Absolute Monos (auto) 0.75 (0.0-1.3) Lymphocytes % 22.7 L (24.0-44.0) % Monocytes % 10.3 (0.0-12.0) % Eosinophils % 1.0 (0.00-5.0) % Basophils % 0.6 (0.0-0.4) % Absolute Granulocytes 4.75 (1.4-6.9) Basophils # 0.04 (0-0.4) Sodium 139 (137-145) mmol/L Potassium 4.0 (3.5-5.1) mmol/L Chloride 103 (98-107) mmol/L Carbon Dioxide 28 (22-30) mmol/L Anion Gap 12.3 (5-15) MEQ/L BUN 27 H (7-17) mg/dL Creatinine 0.88 (0.52-1.04) mg/dL Estimated GFR > 60.0 ML/MIN Glucose 117 H (74-106) mg/dL Lactic Acid (0.4-2.0) Calcium 10.0 (8.4-10.2) mg/dL Total Bilirubin 0.80 (0.2-1.3) mg/dL AST 26 (14-36) U/L ALT 16 (0-35) U/L Alkaline Phosphatase 65 (38-126) U/L Troponin I (0.000-0.034) ng/mL NT-Pro-B Natriuret Pep 636 (0-1800) pg/mL Serum Total Protein 6.5 (6.3-8.2) g/dL Albumin 3.7 (3.5-5.0) g/dL Amylase 61 (30-110) U/L Urine Color (YELLOW) Urine Appearance (CLEAR) Urine pH (5-6) Ur Specific [place] (1.005-1.025) Urine Protein (Negative) Urine Ketones (NEGATIVE) Urine Blood (0-5) Vasile/ul Urine Nitrite (NEGATIVE) Urine Bilirubin (NEGATIVE) Urine Urobilinogen (0-1) mg/dL Ur Leukocyte Esterase (NEGATIVE) Urine WBC (Auto) (0-5) /HPF Urine RBC (Auto) (0-2) /HPF U Epithel Cells (Auto) (FEW) /HPF Urine Mucus (Auto) (NEGATIVE) /HPF Urine Culture Reflexed (NO) Urine Glucose (NEGATIVE) mg/dL - Progress Progress: improved Progress Note: 01/30/18 10:01 requested and received rad over-read for hips due to suspicious area also at left fem neckl and Dr. Oviedo agrees no obvious fx at this time- pt and advised that occult fx may still exist and for need to f/u PCP for furhter w/u of neuro symptoms as planned and for furhter imaging of hips if symptoms persist this week they understand and prefer oupt f/u to further w/u in ER at this time and have the capacity to make that choice. 01/30/18 10:05 abd soft and nontender without peritoneal signs or distension and aliyah diet well. Counseled pt/family regarding: lab results, diagnosis, need for follow-up, rad results - Departure Time of Disposition: 10:04 Departure Disposition: Home Clinical Impression: left hip contusion/possible ligament inj, stable imbalance issues with neuro f/ u Condition: Good Critical Care Time: No Referrals: YANET COFFMAN MD [Primary Care Provider] - Instructions: Preventing Falls, Contusion (DC), Standing Balance Exercises, Beginner Additional Instructions: although no fracture or neurologic problem was found , it is important to followup with your Dr as planned to complete your neuro workup , and to recheck your hip since a fracture could still be found on later bone scan or other imaging study - if pain persists. a ligament tear could also be the cause - not seen on x-rays but possibly on MRI later. after work up is complete , balance training may be useful. a beginning training example is included in your instructions , but DO NOT PROCEED WITH THESE UNTIL YOUR DR. HAS RECHECKED YOU AND CLEARED YOU FOR THIS. these are included to help you start planning and thinking about it . return meantime if any concerns.
[2018-01-30 07:40] LABS: BASOPHIL % 0.6 % (0.0-0.4); Basophil (Absolute #) 0.04 (0-0.4); Eosinophil (Absolute #) 0.07 (0-0.5); Granulocyte Absolute (ANC) 4.75 (1.4-6.9); Granulocytes % 65.4 % (36.0-66.0); Hematocrit 39.3 % (35-47); Hemoglobin 12.6 gm/dl (12.0-16.0); Lymphocyte (Absolute #) 1.65 (1.0-4.6); Lymphocytes % 22.7 % (24.0-44.0); Mean Cell Volume 91.8 fl (78-100); Mean Corpuscular Hemoglobin 29.4 pg (26-32); Mean Corpuscular Hgb Concent. 32.1 g/dl (32-36); Mean Platelet Volume 10.6 fl (6-9.5); Monocyte (Absolute #) 0.75 (0.0-1.3); Monocytes % 10.3 % (0.0-12.0); Platelet Count 272 K/mm3 (150-450); Red Blood Count 4.28 M/mm3 (4.1-5.4); Red Cell Distribution Width 15.8 % (11.5-14.0); White Blood Count 7.3 K/mm3 (4.0-10.5)
[2018-01-30 08:09] LABS: Appearance SLIGHTLY CLOUDY (CLEAR); Bilirubin NEGATIVE (NEGATIVE); Blood NEGATIVE Ery/ul (0-5); Glucose NEGATIVE (NEGATIVE); Ketones NEGATIVE (NEGATIVE); Leukocyte Esterase NEGATIVE (NEGATIVE); Nitrite NEGATIVE (NEGATIVE); Protein,Urine Dip NEGATIVE (Negative); Specific Gravity 1.023 (1.005-1.025); Urobilinogen NEGATIVE mg/dL (0-1)
[2018-01-30 08:16] LABS: ALBUMIN 3.7 g/dL (3.5-5.0); ALKALINE PHOSPHATASE 65 U/L (38-126); AMYLASE 61 U/L (30-110); ANION GAP 12.3 MEQ/L (5-15); BLOOD UREA NITROGEN 27 mg/dL (7-17); CHLORIDE 103 mmol/L (98-107); Carbon Dioxide 28 mmol/L (22-30); Creatinine 1 0.88 mg/dL (0.52-1.04); Glucose 117 mg/dL (74-106); NT PRO BNP 636 pg/mL (0-1800); SGOT/AST 26 U/L (14-36); SGPT/ALT 16 U/L (0-35); SODIUM 139 mmol/L (137-145); Total Protein 6.5 g/dL (6.3-8.2)
[2018-01-30 08:17] VITALS: BP 116/93
[2018-01-30 08:21] VITALS: O2SAT 97
[2018-01-30 10:51] VITALS: PULSE 60
--- NOTE | 2018-01-30 18:21 | XRAY ---
Indication: Left hip pain following fall 5 days ago. Comparison: None AP pelvis and 2 views of the left and right hip demonstrates osteopenia, mild scattered vascular calcifications and tiny well-circumscribed ossification just inferior to the right inferior pubic ramus either degenerative versus old injury. Lower lumbar degenerative changes. No other bony, articular, or soft tissue abnormalities.
--- NOTE | 2018-01-30 18:24 | XRAY ---
Indication: Right-sided injury following fall 5 days ago. Patient on blood thinners. Multiple contiguous axial images obtained through the head without contrast. Comparison: None Age-appropriate global atrophy and mild periventricular degenerative micro-ischemia bilaterally. No acute intracranial hemorrhage, abnormal extra-axial fluid collection, or mass effect. Fourth ventricle is midline without hydrocephalus. Bony calvarium intact. Visualized paranasal sinuses and mastoid air cells are clear. Impression: Nonacute senile brain. CTDI 51.54
== END 2018-01-30 10:54 | disposition home or self-care (01) ==
LOC: ED 06:28
DX: S70.02XA Contusion of left hip, initial encounter (principal); S00.93XA Contusion of unspecified part of head, initial encounter; R26.89 Other abnormalities of gait and mobility; W18.30XA Fall on same level, unspecified, initial encounter; Y93.9 Activity, unspecified; Y92.009 Unspecified place in unspecified non-institutional (private) residence as the place of occurrence of the external cause; I48.91 Unspecified atrial fibrillation; Z79.01 Long term (current) use of anticoagulants; Z79.899 Other long term (current) drug therapy; I44.4 Left anterior fascicular block
CPT/HCPCS: 36415; 70450; 73521; 80053; 81001; 82150; 83605; 83880; 84484; 85025; 93005; 99284

== ENCOUNTER 2021-04-06 22:01 | Observation (INO) | payer MEDICARE ==
[2021-04-06 23:17] LABS: COVID AG -BINAX NOW RAPID TEST NEGATIVE (NEGATIVE)
[2021-04-06 23:28] LABS: Absolute Neutrophil Ct (ANC) 10.68 (1.4-6.9); Basophil (Absolute #) 0.03 (0-0.4); Eosinophil % 0.3 % (0.00-5.0); Eosinophil (Absolute #) 0.04 (0-0.5); Hematocrit 42.6 % (35-47); Hemoglobin 14.4 gm/dl (12.0-16.0); Lymphocyte (Absolute #) 1.37 (1.0-4.6); Lymphocytes % 10.4 % (24.0-44.0); Mean Cell Volume 94.7 fl (78-100); Mean Corpuscular Hgb Concent. 33.8 g/dl (32-36); Mean Platelet Volume 10.2 fl (7.5-11.0); Monocyte (Absolute #) 1.02 (0.0-1.3); Monocytes % 7.8 % (0.0-12.0); Neutrophil % 81.3 % (36.0-66.0); Platelet Count 304 K/mm3 (150-450); Red Cell Distribution Width 13.6 % (11.5-14.0); White Blood Count 13.1 K/mm3 (4.0-10.5)
--- NOTE | 2021-04-06 23:33 | ERPHSYRPT ---
- History of Present Illness Time Seen by Provider: 04/06/21 22:56 Source: patient, EMS Exam Limitations: no limitations Patient Subjective Stated Complaint: syncopal episode x2 at home Triage Nursing Assessment: pt arrived by EMS. Pt was sitting at home at the table playing cards with her and she slouched over. He called 911. When rescue arrived, she did it again. Pt and her spouse deny her hitting her head with the syncopal epidoses. 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 We watched the news then started playing cards". Pt is alert and oriented x3, pleasant and cooperative. Physician History: 89 years old female with history of hypertension, hyperlipidemia, atrial fibrillation on Xarelto, presented in the ER with chief complaint of syncopal episode x2 prior to arrival. Patient reports she was sitting on kitchen table playing cards with her and all of a sudden her noted that she slumped forward, collapsed. Lasted for few seconds, EMS was called and patient had another episode for few second and improved. She denies any numbness tingling or focal weakness. Did not notice by has been any seizure-like activi ty. Denies any chest pain palpitations or shortness of breath before or after the syncopal episode. Witnessed: by family, other Prior Episodes: multiple episodes today Timing/Duration: today, sudden, improved Precipitating Factors: unknown Context: sitting Loss of Consciousness: brief (seconds) Charcter of event(s): collapsed, became unresponsive Allergies/Adverse Reactions: raloxifene HCl [From Evista] Allergy (Mild, Verified 04/06/21 22:26) Fainting VERTIGO hydrochlorothiazide Allergy (Verified 04/06/21 22:26) passed out morphine Adverse Reaction (Verified 04/06/21 22:26) Home Medications: Atorvastatin Calcium [Lipitor] 40 mg PO HS 01/30/17 [History] Losartan Potassium 50 mg [Cozaar 50 MG] 50 mg PO DAILY 01/30/17 [History] Multivitamin [Multivitamins] 1 each PO DAILY 01/30/17 [History] Aspirin 81 mg PO DAILY 10/25/17 [History] Ibuprofen 400 mg PO QIDPRN PRN 10/25/17 [History] Metoprolol Tartrate [Lopressor] 100 mg PO DAILY 10/25/17 [History] Polyethylene Glycol 3350 [Miralax] 17 gm PO DAILY 10/25/17 [History] Rivaroxaban 10 mg Tablet [Xarelto 10 mg Tablet] 15 mg PO HS 10/25/17 [History] Solifenacin Succinate [Vesicare] 10 mg PO DAILY PRN PRN 10/25/17 [History] Amiodarone HCl 200 mg [Cordarone 200 MG] 200 mg PO DAILY 01/30/18 [History] Hx Tetanus, Diphtheria Vaccination/Date Given: Yes Hx Influenza Vaccination/Date Given: Yes Hx Pneumococcal Vaccination/Date Given: Yes Immunizations Up to Date: No Travel Risk - International Travel Have you traveled outside of the country in past 3 weeks: No - Coronavirus Screening Are you exhibiting any of the following symptoms?: No Close contact with a COVID-19 positive Pt in past 14-21 Days: Yes - Vaccine Status Have you recieved a Covid-19 vaccination: Yes [employer] 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 CATH TIMES 2; MEDICAL MENISCUS REPAIR 01-18-11; SPASTIC COLON 1970; PNEUMONIA 1974; HTN; DUODINAL ULCER right total knee replacement - Social History Smoking Status: Never smoker Exposure to second hand smoke: No Drug Use: none Patient Lives Alone: No - Female History Hx Now: No - Review of Systems Constitutional: Fatigue Eyes: No Symptoms Ears, Nose, & Throat: No Symptoms Respiratory: No Symptoms Cardiac: No Symptoms Abdominal/Gastrointestinal: No Symptoms Genitourinary Symptoms: No Symptoms Musculoskeletal: No Symptoms Skin: No Symptoms Neurological: No Focal Weakness, No Headache Psychological: No Symptoms Endocrine: No Symptoms Hematologic/Lymphatic: No Symptoms Immunological/Allergic: No Symptoms Physical Exam - Nursing Vital Signs Nursing Vital Signs: Initial Vital Signs Temperature 97.1 F 04/06/21 22:11 Pulse Rate 59 L 04/06/21 22:11 Respiratory Rate 20 04/06/21 22:11 Blood Pressure 157/70 04/06/21 22:11 O2 Sat by Pulse Oximetry 98 04/06/21 22:11 Pain Scale Pain Intensity 0 - [place] Coma Scale Best Eye Response ([place]): (4) open spontaneously Best Verbal Response ([place]): (5) oriented Best Motor Response ([place]): (6) obeys commands [place] Total: 15 - Physical Exam General Appearance: no apparent distress, alert Eye Exam: bilateral eye: normal inspection, PERRL, EOMI Ears, Nose, Throat Exam: normal ENT inspection, TMs normal, pharynx normal, moist mucous membranes Neck Exam: normal inspection, non-tender, supple, full range of motion Respiratory: normal breath sounds, lungs clear Cardiovascular: regular rate/rhythm, normal heart sounds Gastrointestinal: soft, normal bowel sounds, No tenderness Rectal Exam: blood Back Exam: normal inspection Extremity Exam: normal inspection, normal range of motion, pelvis stable Mental Status: alert, oriented x 3, 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 Exam: normal hearing, normal speech, PERRL Coordination/Gait: normal finger to nose, normal cerebellar function Motor/Sensory: no motor deficit, no sensory deficit, no pronator drift, negative Babinski's sign DTR: bicep (R): 2+, bicep (L): 2+, knee (R): 2+, knee (L): 2+ Skin Exam: normal color SpO2 Interpretation: normal SpO2: 97 O2 Delivery: Room Air - Course EKG Interpreted by Me: RATE ([id number]), Sinus Giancarlo, NORMAL AXIS, LAFB, Right Bundle Branch Block, Non-specific ST Changes Ordered Tests: Active Orders 24 hr Category Date Time Status Orthostatic Vital Signs STAT Care 04/06/21 23:50 Active CHEST 1 VIEW (PORTABLE) Stat Exams 04/06/21 23:44 Taken HEAD WITHOUT CONTRAST [CT] Stat Exams 04/06/21 22:27 Taken CBC W DIFF Stat Lab 04/06/21 23:21 Completed CMP Stat Lab 04/06/21 23:21 Completed COVID AG-BINAX NOW RAPID TEST Stat Lab 04/06/21 22:45 Completed MAGNESIUM Stat Lab 04/06/21 23:21 Completed TROPONIN Q3H Lab 04/06/21 23:21 Received UA W/RFX UR CULTURE Stat Lab 04/06/21 23:28 Completed Transfer Order Routine Transfer 04/06/21 Ordered Medication Summary Generic Name Dose Route Start Last Admin Trade Name Wiltonq PRN Reason Stop Dose Admin Sodium Chloride 1,000 mls @ 100 mls/hr 04/06/21 23:45 Sodium Chloride 0.9% 1000 Ml IV 05/06/21 23:44 .Q10H [facility] Lab/Rad Data: Laboratory Result Diagrams 04/06/21 23:21 04/06/21 23:21 Laboratory Results 04/06/21 04/06/21 04/06/21 Range/Units 23:28 23:21 23:21 WBC 13.1 H (4.0-10.5) K/mm3 RBC 4.50 (4.1-5.4) M/mm3 Hgb 14.4 (12.0-16.0) gm/dl Hct 42.6 (35-47) % MCV 94.7 (78-100) fl MCH 32.0 (26-32) pg MCHC 33.8 (32-36) g/dl RDW 13.6 (11.5-14.0) % Plt Count 304 (150-450) K/mm3 MPV 10.2 (7.5-11.0) fl Gran % 81.3 H (36.0-66.0) % Eos # (Auto) 0.04 (0-0.5) Absolute Lymphs (auto) 1.37 (1.0-4.6) Absolute Monos (auto) 1.02 (0.0-1.3) Lymphocytes % 10.4 L (24.0-44.0) % Monocytes % 7.8 (0.0-12.0) % Eosinophils % 0.3 (0.00-5.0) % Basophils % 0.2 (0.0-0.4) % Absolute Granulocytes 10.68 H (1.4-6.9) Basophils # 0.03 (0-0.4) Sodium 131 L (137-145) mmol/L Potassium 4.2 (3.5-5.1) mmol/L Chloride 97 L (98-107) mmol/L Carbon Dioxide 22 (22-30) mmol/L Anion Gap 15.6 H (5-15) MEQ/L BUN 27 H (7-17) mg/dL Creatinine 1.67 H (0.52-1.04) mg/dL Estimated GFR 30.8 ML/MIN Glucose 117 H (74-106) mg/dL Calcium 10.3 H (8.4-10.2) mg/dL Magnesium 1.7 (1.6-2.3) mg/dL Total Bilirubin 0.90 (0.2-1.3) mg/dL AST 31 (14-36) U/L ALT 25 (0-35) U/L Alkaline Phosphatase 81 (38-126) U/L Serum Total Protein 7.1 (6.3-8.2) g/dL Albumin 4.2 (3.5-5.0) g/dL Urine Color YELLOW (YELLOW) Urine Appearance CLEAR (CLEAR) Urine pH 6.0 (5-6) Ur Specific [place] 1.012 (1.005-1.025) Urine Protein NEGATIVE (Negative) Urine Ketones NEGATIVE (NEGATIVE) Urine Blood NEGATIVE (0-5) Vasile/ul Urine Nitrite NEGATIVE (NEGATIVE) Urine Bilirubin NEGATIVE (NEGATIVE) Urine Urobilinogen NEGATIVE (0-1) mg/dL Ur Leukocyte Esterase TRACE (NEGATIVE) Urine WBC (Auto) 0-2 (0-5) /HPF Urine RBC (Auto) NONE (0-2) /HPF U Hyaline Cast (Auto) 6-10 (0-2) /LPF U Epithel Cells (Auto) NONE (FEW) /HPF Urine Bacteria (Auto) NONE (NEGATIVE) /HPF Urine Culture Reflexed NO (NO) Urine Glucose NEGATIVE (NEGATIVE) mg/dL SARS-CoV-2 Ag (Rapid) (NEGATIVE) 04/06/21 Range/Units 22:45 WBC (4.0-10.5) K/mm3 RBC (4.1-5.4) M/mm3 Hgb (12.0-16.0) gm/dl Hct (35-47) % MCV (78-100) fl MCH (26-32) pg MCHC (32-36) g/dl RDW (11.5-14.0) % Plt Count (150-450) K/mm3 MPV (7.5-11.0) fl Gran % (36.0-66.0) % Eos # (Auto) (0-0.5) Absolute Lymphs (auto) (1.0-4.6) Absolute Monos (auto) (0.0-1.3) Lymphocytes % (24.0-44.0) % Monocytes % (0.0-12.0) % Eosinophils % (0.00-5.0) % Basophils % (0.0-0.4) % Absolute Granulocytes (1.4-6.9) Basophils # (0-0.4) Sodium (137-145) mmol/L Potassium (3.5-5.1) mmol/L Chloride (98-107) mmol/L Carbon Dioxide (22-30) mmol/L Anion Gap (5-15) MEQ/L BUN (7-17) mg/dL Creatinine (0.52-1.04) mg/dL Estimated GFR ML/MIN Glucose (74-106) mg/dL Calcium (8.4-10.2) mg/dL Magnesium (1.6-2.3) mg/dL Total Bilirubin (0.2-1.3) mg/dL AST (14-36) U/L ALT (0-35) U/L Alkaline Phosphatase (38-126) U/L Serum Total Protein (6.3-8.2) g/dL Albumin (3.5-5.0) g/dL Urine Color (YELLOW) Urine Appearance (CLEAR) Urine pH (5-6) Ur Specific [place] (1.005-1.025) Urine Protein (Negative) Urine Ketones (NEGATIVE) Urine Blood (0-5) Vasile/ul Urine Nitrite (NEGATIVE) Urine Bilirubin (NEGATIVE) Urine Urobilinogen (0-1) mg/dL Ur Leukocyte Esterase (NEGATIVE) Urine WBC (Auto) (0-5) /HPF Urine RBC (Auto) (0-2) /HPF U Hyaline Cast (Auto) (0-2) /LPF U Epithel Cells (Auto) (FEW) /HPF Urine Bacteria (Auto) (NEGATIVE) /HPF Urine Culture Reflexed (NO) Urine Glucose (NEGATIVE) mg/dL SARS-CoV-2 Ag (Rapid) NEGATIVE (NEGATIVE) - Progress Progress: improved, re-examined Progress Note: 04/06/21 23:59 89 years old is evaluated for syncopal episodes prior to arrival. She has a nonfocal neuro exam. CT head is negative for any acute intracranial findings. EKG shows sinus bradycardia without any acute ischemic changes and she denies any chest pain palpitations or shortness of breath. Patient is anticoagulated with Xarelto. Chest x-ray reviewed by me did not reveal any obvious acute findings. She has mild worsening of renal functions from baseline. She is sta rted on gentle hydration. COVID-[address] is negative[address] with Dr. Coffman and patient is being admitted for observation for further evaluation of syncope. Discussed with : Anjelica Will see patient in: hospital (observation) Counseled pt/family regarding: lab results, diagnosis, rad results - Departure Departure Disposition: Observation Clinical Impression: Syncope and collapse Condition: Stable Critical Care Time: No Referrals: YANET COFFMAN MD [Primary Care Provider] - Follow up/PCP as directed
[2021-04-06 23:40] LABS: ALBUMIN 4.2 g/dL (3.5-5.0); ANION GAP 15.6 MEQ/L (5-15); BILIRUBIN,TOTAL 0.9 mg/dL (0.2-1.3); Calcium 10.3 mg/dL (8.4-10.2); Creatinine 1 1.67 mg/dL (0.52-1.04); EST GLOMERULAR FILTRATION RATE 30.8 ML/MIN; MAGNESIUM 1.7 mg/dL (1.6-2.3); Potassium 4.2 mmol/L (3.5-5.1); Total Protein 7.1 g/dL (6.3-8.2)
[2021-04-06 23:47] LABS: Appearance CLEAR (CLEAR); Bilirubin NEGATIVE (NEGATIVE); Blood NEGATIVE Ery/ul (0-5); Glucose NEGATIVE (NEGATIVE); Ketones NEGATIVE (NEGATIVE); Leukocyte Esterase TRACE (NEGATIVE); Nitrite NEGATIVE (NEGATIVE); Protein,Urine Dip NEGATIVE (Negative); Specific Gravity 1.012 (1.005-1.025); Urobilinogen NEGATIVE mg/dL (0-1); WBC 0-2 /HPF (0-5)
[2021-04-06] MEDS: Sodium Chloride 0.9% 1000 ML 1,000 ML IV SCH (23:59)
[2021-04-07 01:15] LABS: INFLUENZA A NEGATIVE (NEGATIVE); INFLUENZA B NEGATIVE (NEGATIVE); RESPIRATORY SYNCTIAL VIRUS NEGATIVE (Negative); SARS-CoV-2 Xpert Express NEGATIVE (NEGATIVE)
[2021-04-07] MEDS ORDERED: TYLENOL 325 MG PO PRN (01:41)
[2021-04-07] MEDS ORDERED: Zofran 4 MG/2 ML VIAL IV PRN (01:41)
[2021-04-07] MEDS ORDERED: DUONEB 0.5-3 MG/3 ml Neb IH PRN (01:41)
[2021-04-07 05:11] LABS: Absolute Neutrophil Ct (ANC) 8.31 (1.4-6.9); Basophil (Absolute #) 0.02 (0-0.4); Eosinophil % 0.2 % (0.00-5.0); Eosinophil (Absolute #) 0.02 (0-0.5); Hematocrit 38.4 % (35-47); Hemoglobin 12.8 gm/dl (12.0-16.0); Lymphocyte (Absolute #) 2.09 (1.0-4.6); Lymphocytes % 18.4 % (24.0-44.0); Mean Cell Volume 94.8 fl (78-100); Mean Corpuscular Hemoglobin 31.6 pg (26-32); Mean Corpuscular Hgb Concent. 33.3 g/dl (32-36); Mean Platelet Volume 10.1 fl (7.5-11.0); Monocytes % 7.9 % (0.0-12.0); Neutrophil % 73.3 % (36.0-66.0); Platelet Count 274 K/mm3 (150-450); Red Blood Count 4.05 M/mm3 (4.1-5.4); Red Cell Distribution Width 13.5 % (11.5-14.0); White Blood Count 11.3 K/mm3 (4.0-10.5)
[2021-04-07 06:11] LABS: ALBUMIN 3.5 g/dL (3.5-5.0); ANION GAP 10.1 MEQ/L (5-15); BILIRUBIN,TOTAL 0.9 mg/dL (0.2-1.3); Calcium 9.7 mg/dL (8.4-10.2); Creatinine 1 1.4 mg/dL (0.52-1.04); EST GLOMERULAR FILTRATION RATE 37.7 ML/MIN; Total Protein 6.2 g/dL (6.3-8.2)
[2021-04-07] MEDS ORDERED: Ativan 2 MG/1 ML VIAL IV ONE (08:44)
--- NOTE | 2021-04-07 08:48 | XRAY ---
Indication: Syncope. No known injury. Multiple contiguous axial images obtained through the head without contrast. Comparison: January 30, 2018. Again age-appropriate global atrophy with progressive worsening moderate periventricular degenerative micro-ischemia bilaterally. No acute intracranial hemorrhage, abnormal extra-axial fluid collection, or mass effect. Fourth ventricle is midline without hydrocephalus. Bony calvarium intact. Visualized paranasal sinuses and mastoid air cells are clear. Impression: Continued nonacute senile brain. Comment: Preliminary interpretation made by [facility]. No critical discrepancy.
--- NOTE | 2021-04-07 08:51 | PCM.HP ---
History of Present Illness - Chief Complaint Chief Complaint: Syncope and collapse History of Present Illness: is a 89 year old female who felt lightheaded like she might pass out last evening. 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 she has a history of a fib, she had another brief syncopal episode after EMS arrival, was not postictal but her legs were weak after she regained consciousness, denies any recent cough, fever or GI illness. currently has covid, he began with symptoms on Saturday and had a positive home test but Margy is negative. - Review of Systems Constitutional: No Fever, No Chills Respiratory: No Cough, No Short Of Breath Cardiac: Syncope, No Chest Pain, No Edema, No Palpitations Abdominal/Gastrointestinal: No Abdominal Pain, No Nausea, No Vomiting, No Diarrhea Genitourinary Symptoms: No Dysuria Skin: No Rash All Other Systems: Reviewed and Negative Medications & Allergies Home Medications: Home Medication List Atorvastatin Calcium [Lipitor] 40 mg PO HS 01/30/17 [History Confirmed 04/06/21] Losartan Potassium 50 mg [Cozaar 50 MG] 50 mg PO DAILY 01/30/17 [History Confirmed 04/06/21] Multivitamin [Multivitamins] 1 each PO DAILY 01/30/17 [History Confirmed 04/06/21] Aspirin 81 mg PO DAILY 10/25/17 [History Confirmed 04/06/21] Ibuprofen 400 mg PO QIDPRN PRN 10/25/17 [History Confirmed 04/06/21] Metoprolol Tartrate [Lopressor] 100 mg PO DAILY 10/25/17 [History Confirmed 04/06/21] Polyethylene Glycol 3350 [Miralax] 17 gm PO DAILY 10/25/17 [History Confirmed 04/06/21] Rivaroxaban 10 mg Tablet [Xarelto 10 mg Tablet] 15 mg PO HS 10/25/17 [History Confirmed 04/06/21] Solifenacin Succinate [Vesicare] 10 mg PO DAILY PRN PRN 10/25/17 [History Confirmed 04/06/21] Amiodarone HCl 200 mg [Cordarone 200 MG] 200 mg PO DAILY 01/30/18 [History Confirmed 04/06/21] Donepezil HCl 10 mg [Aricept 10 MG] 10 mg PO DAILY 04/07/21 [History Confirmed 04/07/21] Fluticasone/Umeclidin/Vilanter [Trelegy Ellipta 100-62.5-25] 1 each IH BID 04/07/21 [History Confirmed 04/07/21] Pantoprazole Sodium 40 mg PO DAILY 04/07/21 [History Confirmed 04/07/21] Zonisamide 100 mg PO BID 04/07/21 [History Confirmed 04/07/21] Allergies/Adverse Reactions: Allergies Allergy/AdvReac Type Severity Reaction Status Date / Time raloxifene HCl [From Evista] Allergy Mild Fainting Verified 04/06/21 22:26 hydrochlorothiazide Allergy Verified 04/06/21 22:26 morphine AdvReac Verified 04/06/21 22:26 - Past Medical History Past Medical History: Yes Neurological History: No Pertinent History ENT History: No Pertinent History Cardiac History: High Cholesterol, Hypertension Respiratory History: COPD, Pneumonia Endocrine Medical History: Hypothyroidism Musculoskelatal History: Arthritis GI Medical History: Colitis, Ulcer History: Other Pyscho-Social History: No Pertinent History Reproductive Disorders: Other Comment: URGE INCONTINENCE; 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, afib - Female History Are you now?: No - Past Surgical History Past Surgical History: Yes Neuro Surgical History: No Pertinent History Cardiac History: Cardiac Catheterization, Other Respiratory Surgery: No Pertinent History GI Surgical History: Cholecystectomy Genitourinary Surgical Hx: No Pertinent History Musculskeletal Surgical Hx: Other Female Surgical History: Hysterectomy Other Surgical History: TOTAL HYSTERECTOMY 1961; LUMBAR LAMINECTOMY 1972; TONSILECTOMY 1972; CERVIACL LAMINECTOMY 1975; LUMBAR LAMINECTOMY 1989; GAVINO 1984; CA-RIGHT SIDE OF NOSE; BACK SURGERY 2004; FOOT SURGERY ; HEART. CATH TIMES 2; MEDICAL MENISCUS REPAIR 01-18-11; SPASTIC COLON 1970; PNEUMONIA 1974; HTN; DUODINAL ULCER right total knee replacement - Social History Smoking Status: Never smoker Exposure to second hand smoke: No Alcohol: None Drug Use: none - Physical Exam Vital Signs: Vital Signs - 24 hr Temp Pulse Resp BP Pulse Ox 04/07/21 08:00 96.3 F 60 17 134/62 96 04/07/21 07:51 18 04/07/21 04:00 97.8 F 54 L 18 121/60 92 L 04/07/21 02:28 97.8 F 61 20 147/65 95 04/07/21 01:00 52 L 16 120/50 93 L 04/07/21 00:00 97 04/07/21 00:00 58 L 20 165/66 96 04/06/21 23:00 56 L 17 144/57 97 04/06/21 22:11 97.1 F 59 L 20 157/70 98 General Appearance: no apparent distress Neurologic Exam: alert, oriented x 3, 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, 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6 (35-47) % MCV 94.7 (78-100) fl MCH 32.0 (26-32) pg MCHC 33.8 (32-36) g/dl RDW 13.6 (11.5-14.0) % Plt Count 304 (150-450) K/mm3 MPV 10.2 (7.5-11.0) fl Gran % 81.3 H (36.0-66.0) % Eos # (Auto) 0.04 (0-0.5) Absolute Lymphs (auto) 1.37 (1.0-4.6) Absolute Monos (auto) 1.02 (0.0-1.3) Lymphocytes % 10.4 L (24.0-44.0) % Monocytes % 7.8 (0.0-12.0) % Eosinophils % 0.3 (0.00-5.0) % Basophils % 0.2 (0.0-0.4) % Absolute Granulocytes 10.68 H (1.4-6.9) Basophils # 0.03 (0-0.4) Sodium 131 L (137-145) mmol/L Potassium 4.2 (3.5-5.1) mmol/L Chloride 97 L (98-107) mmol/L Carbon Dioxide 22 (22-30) mmol/L Anion Gap 15.6 H (5-15) MEQ/L BUN 27 H (7-17) mg/dL Creatinine 1.67 H (0.52-1.04) mg/dL Estimated GFR 30.8 ML/MIN Glucose 117 H (74-106) mg/dL Calcium 10.3 H (8.4-10.2) mg/dL Magnesium 1.7 (1.6-2.3) mg/dL Total Bilirubin 0.90 (0.2-1.3) mg/dL AST 31 (14-36) U/L ALT 25 (0-35) U/L Alkaline Phosphatase 81 (38-126) U/L Troponin I (0.000-0.034) ng/mL Serum Total Protein 7.1 (6.3-8.2) g/dL Albumin 4.2 (3.5-5.0) g/dL Urine Color (YELLOW) Urine Appearance (CLEAR) Urine pH (5-6) Ur Specific [place] (1.005-1.025) Urine Protein (Negative) Urine Ketones (NEGATIVE) Urine Blood (0-5) Vasile/ul Urine Nitrite (NEGATIVE) Urine Bilirubin (NEGATIVE) Urine Urobilinogen (0-1) mg/dL Ur Leukocyte Esterase (NEGATIVE) Urine WBC (Auto) (0-5) /HPF Urine RBC (Auto) (0-2) /HPF U Hyaline Cast (Auto) (0-2) /LPF U Epithel Cells (Auto) (FEW) /HPF Urine Bacteria (Auto) (NEGATIVE) /HPF Urine Culture Reflexed (NO) Urine Glucose (NEGATIVE) mg/dL Influenza Type A Ag (NEGATIVE) Influenza Type B Ag (NEGATIVE) RSV (PCR) (Negative) SARS-CoV-2 (PCR) (NEGATIVE) SARS-CoV-2 Ag (Rapid) NEGATIVE (NEGATIVE) 04/06/21 04/06/21 04/07/21 Range/Units 23:21 23:28 00:29 WBC (4.0-10.5) K/mm3 RBC (4.1-5.4) M/mm3 Hgb (12.0-16.0) gm/dl Hct (35-47) % MCV (78-100) fl MCH (26-32) pg MCHC (32-36) g/dl RDW (11.5-14.0) % Plt Count (150-450) K/mm3 MPV (7.5-11.0) fl Gran % (36.0-66.0) % Eos # (Auto) (0-0.5) Absolute Lymphs (auto) (1.0-4.6) Absolute Monos (auto) (0.0-1.3) Lymphocytes % (24.0-44.0) % Monocytes % (0.0-12.0) % Eosinophils % (0.00-5.0) % Basophils % (0.0-0.4) % Absolute Granulocytes (1.4-6.9) Basophils # (0-0.4) Sodium (137-145) mmol/L Potassium (3.5-5.1) mmol/L Chloride (98-107) mmol/L Carbon Dioxide (22-30) mmol/L Anion Gap (5-15) MEQ/L BUN (7-17) mg/dL Creatinine (0.52-1.04) mg/dL Estimated GFR ML/MIN Glucose (74-106) mg/dL Calcium (8.4-10.2) mg/dL Magnesium (1.6-2.3) mg/dL Total Bilirubin (0.2-1.3) mg/dL AST (14-36) U/L ALT (0-35) U/L Alkaline Phosphatase (38-126) U/L Troponin I < 0.012 (0.000-0.034) ng/mL Serum Total Protein (6.3-8.2) g/dL Albumin (3.5-5.0) g/dL Urine Color YELLOW (YELLOW) Urine Appearance CLEAR (CLEAR) Urine pH 6.0 (5-6) Ur Specific [place] 1.012 (1.005-1.025) Urine Protein NEGATIVE (Negative) Urine Ketones NEGATIVE (NEGATIVE) Urine Blood NEGATIVE (0-5) Vasile/ul Urine Nitrite NEGATIVE (NEGATIVE) Urine Bilirubin NEGATIVE (NEGATIVE) Urine Urobilinogen NEGATIVE (0-1) mg/dL Ur Leukocyte Esterase TRACE (NEGATIVE) Urine WBC (Auto) 0-2 (0-5) /HPF Urine RBC (Auto) NONE (0-2) /HPF U Hyaline Cast (Auto) 6-10 (0-2) /LPF U Epithel Cells (Auto) NONE (FEW) /HPF Urine Bacteria (Auto) NONE (NEGATIVE) /HPF Urine Culture Reflexed NO (NO) Urine Glucose NEGATIVE (NEGATIVE) mg/dL Influenza Type A Ag NEGATIVE (NEGATIVE) Influenza Type B Ag NEGATIVE (NEGATIVE) RSV (PCR) NEGATIVE (Negative) SARS-CoV-2 (PCR) NEGATIVE (NEGATIVE) SARS-CoV-2 Ag (Rapid) (NEGATIVE) 04/07/21 04/07/21 Range/Units 04:35 04:35 WBC 11.3 H (4.0-10.5) K/mm3 RBC 4.05 L (4.1-5.4) M/mm3 Hgb 12.8 (12.0-16.0) gm/dl Hct 38.4 (35-47) % MCV 94.8 (78-100) fl MCH 31.6 (26-32) pg MCHC 33.3 (32-36) g/dl RDW 13.5 (11.5-14.0) % Plt Count 274 (150-450) K/mm3 MPV 10.1 (7.5-11.0) fl Gran % 73.3 H (36.0-66.0) % Eos # (Auto) 0.02 (0-0.5) Absolute Lymphs (auto) 2.09 (1.0-4.6) Absolute Monos (auto) 0.90 (0.0-1.3) Lymphocytes % 18.4 L (24.0-44.0) % Monocytes % 7.9 (0.0-12.0) % Eosinophils % 0.2 (0.00-5.0) % Basophils % 0.2 (0.0-0.4) % Absolute Granulocytes 8.31 H (1.4-6.9) Basophils # 0.02 (0-0.4) Sodium 132 L (137-145) mmol/L Potassium 4.0 (3.5-5.1) mmol/L Chloride 102 (98-107) mmol/L Carbon Dioxide 25 (22-30) mmol/L Anion Gap 10.1 (5-15) MEQ/L BUN 23 H (7-17) mg/dL Creatinine 1.40 H (0.52-1.04) mg/dL Estimated GFR 37.7 ML/MIN Glucose 103 (74-106) mg/dL Calcium 9.7 (8.4-10.2) mg/dL Magnesium (1.6-2.3) mg/dL Total Bilirubin 0.90 (0.2-1.3) mg/dL AST 27 (14-36) U/L ALT 23 (0-35) U/L Alkaline Phosphatase 65 (38-126) U/L Troponin I (0.000-0.034) ng/mL Serum Total Protein 6.2 L (6.3-8.2) g/dL Albumin 3.5 (3.5-5.0) g/dL Urine Color (YELLOW) Urine Appearance (CLEAR) Urine pH (5-6) Ur Specific [place] (1.005-1.025) Urine Protein (Negative) Urine Ketones (NEGATIVE) Urine Blood (0-5) Vasile/ul Urine Nitrite (NEGATIVE) Urine Bilirubin (NEGATIVE) Urine Urobilinogen (0-1) mg/dL Ur Leukocyte Esterase (NEGATIVE) Urine WBC (Auto) (0-5) /HPF Urine RBC (Auto) (0-2) /HPF U Hyaline Cast (Auto) (0-2) /LPF U Epithel Cells (Auto) (FEW) /HPF Urine Bacteria (Auto) (NEGATIVE) /HPF Urine Culture Reflexed (NO) Urine Glucose (NEGATIVE) mg/dL Influenza Type A Ag (NEGATIVE) Influenza Type B Ag (NEGATIVE) RSV (PCR) (Negative) SARS-CoV-2 (PCR) (NEGATIVE) SARS-CoV-2 Ag (Rapid) (NEGATIVE) - Radiology Impressions Radiology Exams & Impressions: Radiology Procedures Category Date Time Status CHEST 1 VIEW (PORTABLE) Stat Exams 04/06/21 23:44 Taken ECHO W/2D AND DOPPLER [US] Routine Exams 04/07/21 Ordered HEAD WITHOUT CONTRAST [CT] Stat Exams 04/06/21 22:27 Taken MRI BRAIN W/O CONTRAST [MRI] Routine Exams 04/07/21 08:43 Ordered - Other Procedures and Tests Respiratory Therapy 04/07/21 08:43 EEG 41-60 Minutes (Normal) ONCE Assessment/Plan (1) Syncope and collapse Current Visit: Yes Status: Acute Assessment & Plan: MRI ordered, patient has claustrophobia so will premedicate with ativan. ordered EEG and echo, risk of TIA/CVA with a fib but is on xarelto and compliant. Code(s): R55 - SYNCOPE AND COLLAPSE (2) Atrial fibrillation Current Visit: Yes Status: Acute Assessment & Plan: stable, continue home meds. Code(s): I48.91 - UNSPECIFIED ATRIAL FIBRILLATION
--- NOTE | 2021-04-07 08:54 | XRAY ---
Indication: Syncope. Comparison: January 02, 2019. Portable chest again hyperinflated with minimal bilateral scattered fibrosis/scarring and a few tiny calcified granulomas. No focal infiltrate, consolidation, or large effusion. Heart not enlarged again with mitral valve calcifications. Bony thorax intact again with osteopenia, degenerative changes, and scoliosis. Impression: Continued nonacute hyperinflated chest with chronic features.
[2021-04-07] MEDS ORDERED: NON-FORMULARY ITEM (Fluticasone/Umeclidin/Vilanter [Trelegy Ellipta 100-62.5-25] 1 EACH Bl IH SCH (10:00)
[2021-04-07] MEDS ORDERED: NON-FORMULARY ITEM (Metoprolol Tartrate [Lopressor] 100 MG Tablet) PO SCH (10:00)
[2021-04-07] MEDS ORDERED: NON-FORMULARY ITEM (Aspirin [Aspirin] 81 MG Tablet) PO SCH (10:00)
[2021-04-07] MEDS: PROTONIX 40 MG IV IV SCH (10:43)
[2021-04-07] MEDS: Lopressor 50 MG PO SCH (10:43)
[2021-04-07] MEDS: Cozaar 50 MG PO SCH (10:44)
[2021-04-07] MEDS: Aricept 10 MG PO SCH (10:44)
[2021-04-07] MEDS: ZONISAMIDE PO SCH ×2 (10:44→21:25)
[2021-04-07] MEDS: Cordarone 200 MG PO SCH (10:44)
[2021-04-07] MEDS: ECOTRIN 81 MG PO SCH (10:44)
[2021-04-07] MEDS: Miralax Powder 17GM PACKET PO SCH (10:44)
--- NOTE | 2021-04-07 11:51 | XRAY ---
Indication: Syncopal episode. TIA/CVA. Sagittal, coronal, and axial MRI brain performed without contrast using T1, T2, FLAIR, diffusion, and ADC sequences. Comparison: April 18, 2012. There is age-appropriate global atrophy with moderate periventricular degenerative micro-ischemia bilaterally. No acute intracranial hemorrhage, abnormal extra-axial fluid collection, or mass effect. Fourth ventricle is midline without hydrocephalus. 7/8 cranial nerve complex bilaterally symmetric. Normal flow void signal within the major intracerebral circulation. Normal appearing craniocervical junction and sella turcica. Paranasal sinuses are clear. Impression: 1. Atrophy and degenerative micro-ischemia within normal limits for patient's age. 2. No acute intracranial abnormalities or evidence for evolving large vessel territorial stroke.
[2021-04-07] MEDS ORDERED: XARELTO 10 MG TABLET PO SCH (22:00)
[2021-04-08] MEDS: Sodium Chloride 0.9% 1000 ML 1,000 ML IV SCH (02:11)
[2021-04-08] MEDS: Miralax Powder 17GM PACKET PO SCH (10:30)
[2021-04-08] MEDS: PROTONIX 40 MG IV IV SCH (10:30)
[2021-04-08] MEDS: ECOTRIN 81 MG PO SCH (10:31)
[2021-04-08] MEDS: Cozaar 50 MG PO SCH (10:31)
[2021-04-08] MEDS: Cordarone 200 MG PO SCH (10:31)
[2021-04-08] MEDS: Aricept 10 MG PO SCH (10:31)
[2021-04-08] MEDS: ZONISAMIDE PO SCH (11:24)
[2021-04-08] MEDS ORDERED: SYNTHROID 75 MCG PO SCH (14:04)
[2021-04-08] MEDS ORDERED: Toprol-Xl 25MG Tablets PO SCH (14:06)
[2021-04-08] MEDS ORDERED: NORVASC 5 MG PO SCH (14:07)
[2021-04-08] MEDS: Lopressor 50 MG PO SCH (14:13)
--- NOTE | 2021-04-08 14:58 | PCM.DCORD ---
- Discharge Disposition: Home, Self-Care Condition: Stable Prescriptions: New Amlodipine Besylate 5 mg [Norvasc 5 mg] 2.5 mg PO QAM #30 tablet Metoprolol Succinate 25 mg Xl* [Toprol-Xl 25MG Tablets] 25 mg PO DAILY #30 tab Continue Atorvastatin Calcium [Lipitor] 40 mg PO HS Losartan Potassium 50 mg [Cozaar 50 MG] 50 mg PO DAILY Multivitamin [Multivitamins] 1 each PO DAILY Aspirin 81 mg PO DAILY Rivaroxaban 10 mg Tablet [Xarelto 10 mg Tablet] 15 mg PO HS Polyethylene Glycol 3350 [Miralax] 17 gm PO DAILY Ibuprofen 400 mg PO QIDPRN PRN PRN Reason: Pain Solifenacin Succinate [Vesicare] 10 mg PO DAILY PRN PRN PRN Reason: bladder Amiodarone HCl 200 mg [Cordarone 200 MG] 200 mg PO DAILY Zonisamide 100 mg PO BID Pantoprazole Sodium 40 mg PO DAILY Fluticasone/Umeclidin/Vilanter [Trelegy Ellipta 100-62.5-25] 1 each IH BID Donepezil HCl 10 mg [Aricept 10 MG] 10 mg PO DAILY Levothyroxine Sodium 75 Mcg [Synthroid 75 Mcg] 75 mcg PO DAILY Discontinued Metoprolol Tartrate [Lopressor] 100 mg PO DAILY Additional Instructions: call Dr Paiz ,[facility] ,for Hospital follow up appt. He will review your ECHO test with you. Follow up with: YANTE COFFMAN MD [Primary Care Provider] - 04/17/21 10:30 am
[2021-04-08 16:35] VITALS: BP 142/64; PULSE 54; O2SAT 98
== END 2021-04-08 17:00 | disposition home or self-care (01) ==
LOC: ED 22:01 → MED SURG 04-07 01:37
PROVIDERS: ADMIT Family Medicine; ATTEND Family Medicine
DX: R55 Syncope and collapse (principal); I48.91 Unspecified atrial fibrillation; I10 Essential (primary) hypertension; E78.5 Hyperlipidemia, unspecified; J44.9 Chronic obstructive pulmonary disease, unspecified; Z20.828 Contact with and (suspected) exposure to other viral communicable diseases; Z79.899 Other long term (current) drug therapy; Z79.01 Long term (current) use of anticoagulants
CPT/HCPCS: 0241U; 36415; 70450; 70551; 71045; 80053; 81001; 82607; 83735; 84443; 84484; 85025; 93005; 93041; 93268; 93306; 95812; 99000; 99285; G0378; J2060; A9270-GY

== ENCOUNTER 2022-07-14 19:17 | Observation (INO) | payer MEDICARE ==
[2022-07-14] MEDS ORDERED: TYLENOL 325 MG PO STA (19:39)
[2022-07-14] MEDS ORDERED: TYLENOL 325 MG ONE (19:50)
[2022-07-14 20:02] LABS: Absolute Neutrophil Ct (ANC) 4.48 x10^3/uL (1.4-6.9); BASOPHIL % 0.8 % (0.0-0.4); Basophil (Absolute #) 0.06 x10^3/uL (0-0.4); Eosinophil % 1.6 % (0.00-5.0); Eosinophil (Absolute #) 0.13 x10^3/uL (0-0.5); Hematocrit 42.2 % (35-47); Hemoglobin 13.9 g/dL (12.0-16.0); IMMATURE GRAN % 1.3 % (0.00-0.4); Mean Cell Volume 95.3 fL (78-100); Mean Corpuscular Hemoglobin 31.4 pg (26-32); Mean Corpuscular Hgb Concent. 32.9 g/dL (32-36); Mean Platelet Volume 9.5 fL (7.5-11.0); Monocyte (Absolute #) 0.82 x10^3/uL (0.0-1.3); Monocytes % 10.3 % (0.0-12.0); Platelet Count 298 x10^3/uL (150-450); Red Blood Count 4.43 x10^6/uL (4.1-5.4); Red Cell Distribution Width 13.5 % (11.5-14.0)
[2022-07-14 20:21] LABS: ALBUMIN 3.8 g/dL (3.5-5.0); BILIRUBIN,TOTAL 0.7 mg/dL (0.2-1.3); Calcium 9.6 mg/dL (8.4-10.2); Creatinine 1 1.9 mg/dL (0.52-1.04); EST GLOMERULAR FILTRATION RATE 26.5 ML/MIN; Potassium 4.7 mmol/L (3.5-5.1); Total Protein 6.8 g/dL (6.3-8.2)
--- NOTE | 2022-07-14 20:28 | ERPHSYRPT ---
- History of Present Illness Time Seen by Provider: 07/14/22 19:56 Source: patient, family, EMS Exam Limitations: no limitations Patient Subjective Stated Complaint: pt states my blood pressure has been high for the past 4-5 days. my doctor increased my medication and told me to monitor my blood pressure. tonigh I was in the shower and felt off. I have a headache on my right side. my took my blood pressure and it was 89 Triage Nursing Assessment: pt came into the er via ambulance; pt was transferred to cot per EMS staff; pt is axo x4; c/o headache and HTN; pt states 8/10 pain to rt side of head; no respiratory distress present; skin PDW; hypertensive Physician History: 89-year-old female with history of paroxysmal atrial fibrillation on Xarelto, hypertension, hyperlipidemia, hypothyroidism presented in the ER with chief complaint of generalized weakness fatigue and tiredness. Patient reports she has been struggling with her blood pressure for last few days and has recently increased dose of antihypertensive by cardiology. Patient reports usual blood pressure in 170s and 180s, took a shower earlier and started to feel lightheaded and as if she was going to pass out but she did not an actual. It lasted for few seconds to minute and improved. She checked her blood pressure and systolic was 89. She is also having off-and-on headache on the right side dull aching pressure moderate intensity for the last few days. Denies any visual disturbance, numbness tingling focal weakness or difficulty speech. Patient is almost back to her normal now. Denies any chest pain palpitations or shortness of breath before or after this happened. Timing/Duration: today, sudden, improved Severity: moderate Modifying Factors: Improves With: rest Associated Symptoms: headaches Allergies/Adverse Reactions: raloxifene HCl [From Evista] Allergy (Mild, Verified 07/14/22 19:22) Fainting VERTIGO morphine Adverse Reaction (Verified 07/14/22 19:22) Home Medications: Atorvastatin Calcium [Lipitor] 40 mg PO HS 01/30/17 [History] Losartan Potassium 50 mg [Cozaar 50 MG] 100 mg PO DAILY 01/30/17 [History] Aspirin 81 mg PO DAILY 10/25/17 [History] Polyethylene Glycol 3350 [Miralax] 17 gm PO DAILY 10/25/17 [History] Rivaroxaban 10 mg Tablet [Xarelto 10 mg Tablet] 15 mg PO HS 10/25/17 [History] Solifenacin Succinate [Vesicare] 10 mg PO DAILY PRN PRN 10/25/17 [History] Amiodarone HCl 200 mg [Cordarone 200 MG] 200 mg PO DAILY 01/30/18 [History] Fluticasone/Umeclidin/Vilanter [Trelegy Ellipta 100-62.5-25] 1 each IH BID 04/07/21 [History] Zonisamide 100 mg PO BID 04/07/21 [History] Levothyroxine Sodium 75 Mcg [Synthroid 75 Mcg] 75 mcg PO DAILY 04/08/21 [History] Hydralazine HCl 10 mg PO DAILY 07/14/22 [History] Metoprolol Succinate 25 mg Xl* [Toprol-Xl 25MG Tablets] 100 mg PO DAILY 07/14/22 [History] Spironolactone 25 mg [Aldactone 25 MG] 25 mg PO DAILY 07/14/22 [History] Hx Tetanus, Diphtheria Vaccination/Date Given: Yes Hx Influenza Vaccination/Date Given: Yes Hx Pneumococcal Vaccination/Date Given: Yes Immunizations Up to Date: Yes Travel Risk - International Travel Have you traveled outside of the country in past 3 weeks: No - Coronavirus Screening Are you exhibiting any of the following symptoms?: Yes Symptoms: Headaches/Body Aches/Fatigue Close contact with a COVID-19 positive Pt in past 14-21 Days: No - Vaccine Status Have you recieved a Covid-19 vaccination: Yes 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: [employer] - Vaccination Dates Date of 2cond Vaccination (if applicable): 2020 - Review of Systems Constitutional: Fatigue, Weakness Eyes: No Symptoms Ears, Nose, & Throat: No Symptoms Respiratory: No Symptoms Cardiac: No Symptoms Abdominal/Gastrointestinal: No Symptoms Genitourinary Symptoms: No Symptoms Musculoskeletal: No Symptoms Neurological: Dizziness, Headache Psychological: No Symptoms Endocrine: No Symptoms Hematologic/Lymphatic: No Symptoms Immunological/Allergic: No Symptoms - Past Medical History Pertinent Past Medical History: Yes Neurological History: No Pertinent History ENT History: No Pertinent History Cardiac History: High Cholesterol, Hypertension Respiratory History: COPD, Pneumonia Endocrine Medical History: Hypothyroidism Musculoskeletal History: Arthritis GI Medical History: Colitis, Ulcer History: Other Psycho-Social History: No Pertinent History Female Reproductive Disorders: Other Other Medical History: URGE INCONTINENCE; 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 CATH TIMES 2; MEDICAL MENISCUS REPAIR 01-18-11; SPASTIC COLON 1970; PNEUMONIA 1974; HTN; DUODINAL ULCER right total knee replacement - Social History Smoking Status: Never smoker Exposure to second hand smoke: Yes Drug Use: none Patient Lives Alone: No - Nursing Vital Signs Nursing Vital Signs: Initial Vital Signs Pulse Rate 65 07/14/22 19:20 Respiratory Rate 19 07/14/22 19:20 Blood Pressure 173/60 07/14/22 19:20 O2 Sat by Pulse Oximetry 94 L 07/14/22 19:20 Pain Scale Pain Intensity 6 - Physical Exam General Appearance: no apparent distress, alert, anxiety Eye Exam: PERRL/EOMI, eyes nml inspection Ears, Nose, Throat Exam: normal ENT inspection, TMs normal, pharynx normal, moist mucous membranes Neck Exam: normal inspection, non-tender, supple, full range of motion Respiratory Exam: normal breath sounds, lungs clear Cardiovascular Exam: regular rate/rhythm, normal heart sounds Gastrointestinal/Abdomen Exam: soft, normal bowel sounds, No tenderness Extremity Exam: normal inspection Neurologic Exam: alert, oriented x 3, cooperative, dinkey motor operator II-XII nml as tested, nml cerebellar function, sensation nml, No normal mood/affect (Anxious), No motor deficits Skin Exam: normal color SpO2 Interpretation: normal SpO2: 97 O2 Delivery: Room Air - Course EKG Interpreted by Me: RATE (67), Sinus Rhythm, NORMAL AXIS, Q-wave, Non- specific ST Changes Ordered Tests: Active Orders 24 hr Category Date Time Status EKG-ER Only STAT Care 07/14/22 19:39 Active CHEST 1 VIEW (PORTABLE) Stat Exams 07/14/22 19:39 Taken HEAD WITHOUT CONTRAST [CT] Stat Exams 07/14/22 19:39 Completed CBC W DIFF Stat Lab 07/14/22 19:39 Completed CMP Stat Lab 07/14/22 20:05 Completed MAG [MAGNESIUM] Stat Lab 07/14/22 20:05 Completed NT PRO BNPII Stat Lab 07/14/22 20:05 Completed TROPONIN Q4H Lab 07/14/22 20:05 Completed TROPONIN Q4H Lab 07/14/22 23:45 Ordered UA W/RFX UR CULTURE Stat Lab 07/14/22 20:44 Completed Medication Summary Generic Name Dose Route Start Last Admin Trade Name Freq PRN Reason Stop Dose Admin Sodium Chloride 1,000 mls @ 100 mls/hr 07/14/22 20:45 07/14/22 20:49 Sodium Chloride 0.9% 1000 Ml IV 08/13/22 20:44 100 mls/hr .Q10H MARQUES Administration Discontinued Medications Generic Name Dose Route Start Last Admin Trade Name Freq PRN Reason Stop Dose Admin Acetaminophen 650 mg 07/14/22 19:39 07/14/22 19:51 Acetaminophen 325 Mg Tablet PO 07/14/22 19:40 650 mg STAT STA Administration Acetaminophen Confirm 07/14/22 19:50 Acetaminophen 325 Mg Tablet Administered 07/14/22 19:51 Dose 650 mg .ROUTE .STK-MED ONE Diphenhydramine HCl 25 mg 07/14/22 20:45 07/14/22 20:49 Diphenhydramine Hcl 50 Mg/Ml Vial IV 07/14/22 20:46 25 mg STAT ONE Administration Diphenhydramine HCl Confirm 07/14/22 20:46 Diphenhydramine Hcl 50 Mg/Ml Vial Administered 07/14/22 20:47 Dose 50 mg .ROUTE .STK-MED ONE Metoclopramide HCl 10 mg 07/14/22 20:45 07/14/22 20:49 Metoclopramide Hcl 10 Mg/2 Ml Vial IV 07/14/22 20:46 10 mg STAT ONE Administration Metoclopramide HCl Confirm 07/14/22 20:46 Metoclopramide Hcl 10 Mg/2 Ml Vial Administered 07/14/22 20:47 Dose 10 mg .ROUTE .STK-MED ONE Lab/Rad Data: Laboratory Result Diagrams 07/14/22 19:39 07/14/22 20:05 Laboratory Results 0507/14/22 07/14/22 Range/Units 20:44 20:05 20:05 WBC (4.0-10.5) x10^3/uL RBC (4.1-5.4) x10^6/uL Hgb (12.0-16.0) g/dL Hct (35-47) % MCV (78-100) fL MCH (26-32) pg MCHC (32-36) g/dL RDW (11.5-14.0) % Plt Count (150-450) x10^3/uL MPV (7.5-11.0) fL Gran % (36.0-66.0) % Immature Gran % (Auto) (0.00-0.4) % Nucleat RBC Rel Count (0.00-0.1) % Eos # (Auto) (0-0.5) x10^3/uL Immature Gran # (Auto) (0.00-0.03) x10^3u/L Absolute Lymphs (auto) (1.0-4.6) x10^3/uL Absolute Monos (auto) (0.0-1.3) x10^3/uL Absolute Nucleated RBC (0.00-0.01) x10^3u/L Lymphocytes % (24.0-44.0) % Monocytes % (0.0-12.0) % Eosinophils % (0.00-5.0) % Basophils % (0.0-0.4) % Absolute Granulocytes (1.4-6.9) x10^3/uL Basophils # (0-0.4) x10^3/uL Sodium (137-145) mmol/L Potassium (3.5-5.1) mmol/L Chloride (98-107) mmol/L Carbon Dioxide (22-30) mmol/L Anion Gap (5-15) MEQ/L BUN (7-17) mg/dL Creatinine (0.52-1.04) mg/dL Estimated GFR ML/MIN Glucose (74-106) mg/dL Calcium (8.4-10.2) mg/dL Magnesium 2.0 (1.6-2.3) mg/dL Total Bilirubin (0.2-1.3) mg/dL AST (14-36) U/L ALT (0-35) U/L Alkaline Phosphatase (38-126) U/L Troponin I (0.000-0.034) ng/mL NT-Pro-B Natriuret Pep 658 (<300) pg/mL Serum Total Protein (6.3-8.2) g/dL Albumin (3.5-5.0) g/dL Urine Color Yellow (Yellow) Urine Appearance Clear (Clear) Urine pH 7.5 (4.6-8.0) Ur Specific [place] 1.010 (1.005-1.030) Urine Protein Negative (Negative) Urine Glucose (UA) Negative (Negative) mg/dL Urine Ketones Negative (Negative) Urine Blood Negative (Negative) Urine Nitrite Negative (Negative) Urine Bilirubin Negative (Negative) Urine Urobilinogen 1.0 A (0.2) mg/dL Ur Leukocyte Esterase Trace A (Negative) U Hyaline Cast (Auto) NONE SEEN (0-2) /LPF Urine Microscopic RBC 0-2 (0-5) /HPF Urine Microscopic WBC 0-2 (0-5) /HPF Ur Epithelial Cells None Seen (None Seen) /HPF Urine Bacteria None Seen (None Seen) /HPF Urine Culture Reflexed NO (NO) 07/14/22 07/14/22 07/14/22 Range/Units 20:05 20:05 19:39 WBC 8.0 (4.0-10.5) x10^3/uL RBC 4.43 (4.1-5.4) x10^6/uL Hgb 13.9 (12.0-16.0) g/dL Hct 42.2 (35-47) % MCV 95.3 (78-100) fL MCH 31.4 (26-32) pg MCHC 32.9 (32-36) g/dL RDW 13.5 (11.5-14.0) % Plt Count 298 (150-450) x10^3/uL MPV 9.5 (7.5-11.0) fL Gran % 56.0 (36.0-66.0) % Immature Gran % (Auto) 1.3 H (0.00-0.4) % Nucleat RBC Rel Count 0.0 (0.00-0.1) % Eos # (Auto) 0.13 (0-0.5) x10^3/uL Immature Gran # (Auto) 0.10 H (0.00-0.03) x10^3u/L Absolute Lymphs (auto) 2.40 (1.0-4.6) x10^3/uL Absolute Monos (auto) 0.82 (0.0-1.3) x10^3/uL Absolute Nucleated RBC 0.00 (0.00-0.01) x10^3u/L Lymphocytes % 30.0 (24.0-44.0) % Monocytes % 10.3 (0.0-12.0) % Eosinophils % 1.6 (0.00-5.0) % Basophils % 0.8 (0.0-0.4) % Absolute Granulocytes 4.48 (1.4-6.9) x10^3/uL Basophils # 0.06 (0-0.4) x10^3/uL Sodium 133 L (137-145) mmol/L Potassium 4.7 (3.5-5.1) mmol/L Chloride 98 (98-107) mmol/L Carbon Dioxide 25 (22-30) mmol/L Anion Gap 15.0 (5-15) MEQ/L BUN 40 H (7-17) mg/dL Creatinine 1.90 H (0.52-1.04) mg/dL Estimated GFR 26.5 ML/MIN Glucose 158 H (74-106) mg/dL Calcium 9.6 (8.4-10.2) mg/dL Magnesium (1.6-2.3) mg/dL Total Bilirubin 0.70 (0.2-1.3) mg/dL AST 39 H (14-36) U/L ALT 43 H (0-35) U/L Alkaline Phosphatase 102 (38-126) U/L Troponin I < 0.012 (0.000-0.034) ng/mL NT-Pro-B Natriuret Pep (<300) pg/mL Serum Total Protein 6.8 (6.3-8.2) g/dL Albumin 3.8 (3.5-5.0) g/dL Urine Color (Yellow) Urine Appearance (Clear) Urine pH (4.6-8.0) Ur Specific [place] (1.005-1.030) Urine Protein (Negative) Urine Glucose (UA) (Negative) mg/dL Urine Ketones (Negative) Urine Blood (Negative) Urine Nitrite (Negative) Urine Bilirubin (Negative) Urine Urobilinogen (0.2) mg/dL Ur Leukocyte Esterase (Negative) U Hyaline Cast (Auto) (0-2) /LPF Urine Microscopic RBC (0-5) /HPF Urine Microscopic WBC (0-5) /HPF Ur Epithelial Cells (None Seen) /HPF Urine Bacteria (None Seen) /HPF Urine Culture Reflexed (NO) - Progress Progress: improved, re-examined Progress Note: 07/14/22 21:51 89-year-old female with history of paroxysmal atrial fibrillation on Xare lto/amiodarone, hypertension, hyperlipidemia, hypothyroidism having issues with blood pressure control lately had increased dose of antihypertensive for 5 days ago, having off-and-on headaches since then with nonfocal neuro exam was doing fine until prior to arrival when she started to feel dizzy lightheaded and weak all over and her blood pressure dropped to 89 systolic. On presentation blood pressure is in 170s and she is feeling much better. Although she is does have some headache. She is given Tylenol which did not help much and was given Reglan and Benadryl, on reevaluation headache is almost completely resolved. Because of her being on Xarelto, having headache I have obtained CT head without contrast and is negative. She has nonfocal neuro exam otherwise throughout stay in the ER. EKG showed normal sinus rhythm with a rate in 60s and no ST elevation with negative initial troponins. Chemistry shows acute on chronic renal failure with baseline creatinine around 1.5 and today is 1.9 and BUN of 40. She is started on gentle hydration. I believe her symptoms of generalized weakness and dizziness is secondary to drop in blood pressure and also some dehydration. Discussed with Dr. Whitmore patient is being admitted for hydration. ER work-up, diagnosis and plan of admission discussed with patient and family who understand and agree with it. Discussed with : Anjelica Will see patient in: hospital (observation) Counseled pt/family regarding: lab results, diagnosis, rad results Medical Desision Making - Independent Historian Additional History obtained from: Spouse - Discussion of managment Care discussed with:: PCP Reviewed:: Test results, Need for additional workup Agreed on:: Treatment plan, place in obs Will see patient: in hospital - Diagnostic Testing Diagnostic test were ordered, analyzed, and reviewed by me: Yes Radiological Interpretation: Interpreted by me, Reviewed by me, Teleradiologist Report - Risk of complications The pt has a high risk of morbidity or mortality based on: Decision regarding hospitilization or escalation of hosp level of care - Departure Departure Disposition: Observation Clinical Impression: Generalized weakness, Hypotension due to hypovolemia, Renal failure (ARF), acute on chronic Condition: Stable Critical Care Time: No Referrals: YANET COFFMAN MD [Primary Care Provider] - Follow up/PCP as directed
[2022-07-14] MEDS ORDERED: Reglan 10 MG/2 ML IV ONE (20:45)
[2022-07-14] MEDS ORDERED: Sodium Chloride 0.9% 1000 ML 1,000 ML IV SCH (20:45)
[2022-07-14] MEDS ORDERED: BENADRYL 50 MG/ML IV ONE (20:45)
[2022-07-14] MEDS ORDERED: Sodium Chloride 0.9% 1000 ML 1,000 ML ONE (20:46)
[2022-07-14] MEDS ORDERED: BENADRYL 50 MG/ML ONE (20:46)
[2022-07-14] MEDS ORDERED: Reglan 10 MG/2 ML ONE (20:46)
[2022-07-14 21:21] LABS: Appearance Clear (Clear); Bacteria None Seen /HPF (None Seen); Bilirubin Negative (Negative); Blood Negative (Negative); Epithelial Cells None Seen /HPF (None Seen); Glucose, Urine Negative (Negative); Hyaline Casts NONE SEEN /LPF (0-2); Ketones Negative (Negative); Leukocyte Esterase Trace (Negative); Nitrite Negative (Negative); Ph 7.5 (4.6-8.0); Protein,Urine Dip Negative (Negative); RBC 0-2 /HPF (0-5); WBC 0-2 /HPF (0-5)
[2022-07-14 21:22] LABS: ADD URINE CULTURE? NO (NO)
--- NOTE | 2022-07-14 21:29 | XRAY ---
CLINICAL HISTORY:hypertension, headache; COMPARISON:CT 04/06/2021; TECHNIQUES:Axial non-contrast CT scan of the brain was performed from the skull base to the high parietal region. CTDI: 53.92 mGy, DLP: 1016.25 mGy*cm; FINDINGS: There are periventricular areas of low attenuation throughout the deep white matter. The ventricular system, cortical sulci and basal cisterns are prominent, consistent with senile changes. The visualized brain parenchyma shows a normal appearance. [place]-white matter differentiation is maintained. No midline shifts or deformity. No intracerebral or extra axial hematoma. Normal CT appearance of the posterior fossa structures namely the cerebellar hemispheres, brainstem and cerebellar peduncles. The IACs are unremarkable. The cerebellopontine angles are clear. The pituitary gland, the pineal gland, and the optic chiasm are unremarkable. The osseous structures in the skull base are unremarkable. No definite calvarium fractures. The scanned paranasal sinuses are clear. IMPRESSION: Senile atrophic and chronic microvascular ischemic changes of the periventricular white matter are noted. No acute intra cranial abnormality. No changes on interval. Electronically Signed by: Reinaldo Castro MD. (: 07/14/2022 20:26:18 RESTORATIVE AIDE)
[2022-07-14] MEDS ORDERED: Pepcid 20 MG VIAL IV SCH (22:49)
[2022-07-14] MEDS ORDERED: DUONEB 0.5-3 MG/3 ml Neb IH PRN (22:49)
[2022-07-14] MEDS ORDERED: Zofran 4 MG/2 ML VIAL IV PRN (22:49)
[2022-07-14] MEDS ORDERED: TYLENOL 325 MG PO PRN (22:49)
[2022-07-15 06:00] LABS: Absolute Neutrophil Ct (ANC) 3.41 x10^3/uL (1.4-6.9); BASOPHIL % 0.7 % (0.0-0.4); Basophil (Absolute #) 0.05 x10^3/uL (0-0.4); Eosinophil % 1.7 % (0.00-5.0); Eosinophil (Absolute #) 0.12 x10^3/uL (0-0.5); Hemoglobin 12.7 g/dL (12.0-16.0); IMMATURE GRAN # 0.07 x10^3u/L (0.00-0.03); Lymphocyte (Absolute #) 2.54 x10^3/uL (1.0-4.6); Mean Cell Volume 95.4 fL (78-100); Mean Corpuscular Hemoglobin 31.1 pg (26-32); Mean Corpuscular Hgb Concent. 32.6 g/dL (32-36); Mean Platelet Volume 9.7 fL (7.5-11.0); Monocyte (Absolute #) 0.67 x10^3/uL (0.0-1.3); Monocytes % 9.8 % (0.0-12.0); Neutrophil % 49.8 % (36.0-66.0); Platelet Count 283 x10^3/uL (150-450); Red Blood Count 4.09 x10^6/uL (4.1-5.4); Red Cell Distribution Width 13.5 % (11.5-14.0); White Blood Count 6.9 x10^3/uL (4.0-10.5)
[2022-07-15] MEDS ORDERED: Sodium Chloride 0.9% 1000 ML 1,000 ML IV SCH (06:00)
[2022-07-15 06:07] LABS: ALBUMIN 3.2 g/dL (3.5-5.0); BILIRUBIN,TOTAL 0.8 mg/dL (0.2-1.3); Calcium 9.2 mg/dL (8.4-10.2); Creatinine 1 1.65 mg/dL (0.52-1.04); EST GLOMERULAR FILTRATION RATE 31.1 ML/MIN; Potassium 4.5 mmol/L (3.5-5.1); Total Protein 5.9 g/dL (6.3-8.2)
[2022-07-15] MEDS ORDERED: Advair Hfa 115/21 Common canister IH SCH (07:00)
[2022-07-15 07:21] VITALS: PULSE 58
--- NOTE | 2022-07-15 07:45 | XRAY ---
Indication: Hypertension. Comparison: June 21, 2022 Portable chest unchanged again hyperinflated and clear with a few incidental tiny calcified granulomas. Heart not enlarged again with mitral valve calcifications. Bony thorax intact with osteopenia and mild degenerative changes. No new/acute findings.
[2022-07-15 08:08] VITALS: BP 133/62; O2SAT 93
--- NOTE | 2022-07-15 09:30 | PCM.SSS ---
History of Present Illness - Chief Complaint Chief Complaint: generalized weakness, acute on chronic renal failure History of Present Illness: is a 89 year old female who recently had her hydralazine dose increased by Dr Paiz for elevated bp, she began to see a white fog and felt dizzy while in the shower, her bp was 90's systolic and she was so weak she couldn't walk, called for an ambulance. - Review of Systems Constitutional: Weakness Eyes: No Symptoms Respiratory: No Cough, No Short Of Breath Cardiac: No Chest Pain, No Edema, No Syncope Abdominal/Gastrointestinal: No Abdominal Pain, No Nausea, No Vomiting, No Diarrhea Genitourinary Symptoms: No Dysuria Skin: No Rash All Other Systems: Reviewed and Negative Medications & Allergies Home Medications: Home Medication List Atorvastatin Calcium [Lipitor] 40 mg PO HS 01/30/17 [History Confirmed 07/14/22] Losartan Potassium 50 mg [Cozaar 50 MG] 100 mg PO DAILY 01/30/17 [History Confirmed 07/14/22] Aspirin 81 mg PO HS 10/25/17 [History Confirmed 07/15/22] Polyethylene Glycol 3350 [Miralax] 17 gm PO DAILY PRN 10/25/17 [History Confirmed 07/14/22] Rivaroxaban 10 mg Tablet [Xarelto 10 mg Tablet] 15 mg PO DAILY 10/25/17 [History Confirmed 07/15/22] Solifenacin Succinate [Vesicare] 10 mg PO DAILY PRN PRN 10/25/17 [History Confirmed 07/14/22] Amiodarone HCl 200 mg [Cordarone 200 MG] 200 mg PO DAILY 01/30/18 [History Confirmed 07/14/22] Fluticasone/Umeclidin/Vilanter [Trelegy Ellipta 100-62.5-25] 1 each IH DAILY 04/07/21 [History Confirmed 07/15/22] Zonisamide 100 mg PO HS 04/07/21 [History Confirmed 07/15/22] Levothyroxine Sodium 75 Mcg [Synthroid 75 Mcg] 75 mcg PO DAILY 04/08/21 [History Confirmed 07/14/22] Hydralazine HCl 20 mg PO TID 07/14/22 [History Confirmed 07/15/22] Metoprolol Succinate 25 mg Xl* [Toprol-Xl 25MG Tablets] 100 mg PO DAILY 07/14/22 [History Confirmed 07/14/22] Allergies/Adverse Reactions: Allergies Allergy/AdvReac Type Severity Reaction Status Date / Time raloxifene HCl [From Evista] Allergy Mild Fainting Verified 07/14/22 19:22 morphine AdvReac Verified 07/14/22 19:22 - Past Medical History Past Medical History: Yes Neurological History: No Pertinent History ENT History: Cataracts Cardiac History: Arrhythmia, High Cholesterol, Hypertension Respiratory History: COPD Endocrine Medical History: Hypothyroidism Musculoskelatal History: Arthritis, Osteoarthritis GI Medical History: No Pertinent History History: Renal Disease Pyscho-Social History: No Pertinent History Reproductive Disorders: No Pertinent History Comment: URGE INCONTINENCE; 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, afib - Female History Are you now?: No - Past Surgical History Past Surgical History: Yes Neuro Surgical History: No Pertinent History Cardiac History: Cardiac Catheterization Respiratory Surgery: No Pertinent History GI Surgical History: Cholecystectomy Genitourinary Surgical Hx: No Pertinent History Musculskeletal Surgical Hx: Joint Replacement Female Surgical History: Hysterectomy Other Surgical History: TOTAL HYSTERECTOMY 1961; LUMBAR LAMINECTOMY 1972; TONSILECTOMY 1972; CERVIACL LAMINECTOMY 1975; LUMBAR LAMINECTOMY 1989; GAVINO 1984; CA-RIGHT SIDE OF NOSE; BACK SURGERY 2004; FOOT SURGERY ; HEART. CATH TIMES 2; MEDICAL MENISCUS REPAIR 01-18-11; SPASTIC COLON 1970; PNEUMONIA 1974; HTN; DUODINAL ULCER right total knee replacement - Social History Smoking Status: Never smoker Exposure to second hand smoke: No Alcohol: None Drug Use: none - Physical Exam Vital Signs: Vital Signs - 24 hr Temp Pulse Resp BP BP Pulse Ox 07/15/22 08:00 96.9 F 58 L 19 133/62 93 L 07/15/22 07:16 58 L 18 95 07/15/22 03:56 97.2 F 59 L 20 170/72 97 07/15/22 01:45 54 L 112/53 07/15/22 00:21 58 L 19 95 07/14/22 22:49 96.6 F 58 L 36 H 199/77 07/14/22 22:13 57 L 15 132/60 95 07/14/22 22:05 68 21 132/60 95 07/14/22 21:55 97 07/14/22 21:00 62 12 140/59 140/59 95 07/14/22 20:00 58 L 9 L 176/82 176/82 95 07/14/22 19:24 97.6 F 71 16 173/60 97 07/14/22 19:20 65 19 173/60 94 L General Appearance: no apparent distress, obese Neurologic Exam: alert, oriented x 3 Respiratory Exam: normal breath sounds, lungs clear, No respiratory distress Cardiovascular Exam: regular rate/rhythm, normal heart sounds, normal peripheral pulses Extremity Exam: normal inspection, normal range of motion, pelvis stable Skin Exam: normal color, warm, dry, No rash Results - Labs Lab/Micro Results: Lab Results-Last 24 Hours 07/14/22 07/14/22 07/14/22 Range/Units 19:39 20:05 20:05 WBC 8.0 (4.0-10.5) x10^3/uL RBC 4.43 (4.1-5.4) x10^6/uL Hgb 13.9 (12.0-16.0) g/dL Hct 42.2 (35-47) % MCV 95.3 (78-100) fL MCH 31.4 (26-32) pg MCHC 32.9 (32-36) g/dL RDW 13.5 (11.5-14.0) % Plt Count 298 (150-450) x10^3/uL MPV 9.5 (7.5-11.0) fL Gran % 56.0 (36.0-66.0) % Immature Gran % (Auto) 1.3 H (0.00-0.4) % Nucleat RBC Rel Count 0.0 (0.00-0.1) % Eos # (Auto) 0.13 (0-0.5) x10^3/uL Immature Gran # (Auto) 0.10 H (0.00-0.03) x10^3u/L Absolute Lymphs (auto) 2.40 (1.0-4.6) x10^3/uL Absolute Monos (auto) 0.82 (0.0-1.3) x10^3/uL Absolute Nucleated RBC 0.00 (0.00-0.01) x10^3u/L Lymphocytes % 30.0 (24.0-44.0) % Monocytes % 10.3 (0.0-12.0) % Eosinophils % 1.6 (0.00-5.0) % Basophils % 0.8 (0.0-0.4) % Absolute Granulocytes 4.48 (1.4-6.9) x10^3/uL Basophils # 0.06 (0-0.4) x10^3/uL Sodium 133 L (137-145) mmol/L Potassium 4.7 (3.5-5.1) mmol/L Chloride 98 (98-107) mmol/L Carbon Dioxide 25 (22-30) mmol/L Anion Gap 15.0 (5-15) MEQ/L BUN 40 H (7-17) mg/dL Creatinine 1.90 H (0.52-1.04) mg/dL Estimated GFR 26.5 ML/MIN Glucose 158 H (74-106) mg/dL Calcium 9.6 (8.4-10.2) mg/dL Magnesium (1.6-2.3) mg/dL Total Bilirubin 0.70 (0.2-1.3) mg/dL AST 39 H (14-36) U/L ALT 43 H (0-35) U/L Alkaline Phosphatase 102 (38-126) U/L Troponin I < 0.012 (0.000-0.034) ng/mL NT-Pro-B Natriuret Pep (<300) pg/mL Serum Total Protein 6.8 (6.3-8.2) g/dL Albumin 3.8 (3.5-5.0) g/dL Urine Color (Yellow) Urine Appearance (Clear) Urine pH (4.6-8.0) Ur Specific [place] (1.005-1.030) Urine Protein (Negative) Urine Glucose (UA) (Negative) mg/dL Urine Ketones (Negative) Urine Blood (Negative) Urine Nitrite (Negative) Urine Bilirubin (Negative) Urine Urobilinogen (0.2) mg/dL Ur Leukocyte Esterase (Negative) U Hyaline Cast (Auto) (0-2) /LPF Urine Microscopic RBC (0-5) /HPF Urine Microscopic WBC (0-5) /HPF Ur Epithelial Cells (None Seen) /HPF Urine Bacteria (None Seen) /HPF Urine Culture Reflexed (NO) 07/14/22 07/14/22 07/14/22 Range/Units 20:05 20:05 20:44 WBC (4.0-10.5) x10^3/uL RBC (4.1-5.4) x10^6/uL Hgb (12.0-16.0) g/dL Hct (35-47) % MCV (78-100) fL MCH (26-32) pg MCHC (32-36) g/dL RDW (11.5-14.0) % Plt Count (150-450) x10^3/uL MPV (7.5-11.0) fL Gran % (36.0-66.0) % Immature Gran % (Auto) (0.00-0.4) % Nucleat RBC Rel Count (0.00-0.1) % Eos # (Auto) (0-0.5) x10^3/uL Immature Gran # (Auto) (0.00-0.03) x10^3u/L Absolute Lymphs (auto) (1.0-4.6) x10^3/uL Absolute Monos (auto) (0.0-1.3) x10^3/uL Absolute Nucleated RBC (0.00-0.01) x10^3u/L Lymphocytes % (24.0-44.0) % Monocytes % (0.0-12.0) % Eosinophils % (0.00-5.0) % Basophils % (0.0-0.4) % Absolute Granulocytes (1.4-6.9) x10^3/uL Basophils # (0-0.4) x10^3/uL Sodium (137-145) mmol/L Potassium (3.5-5.1) mmol/L Chloride (98-107) mmol/L Carbon Dioxide (22-30) mmol/L Anion Gap (5-15) MEQ/L BUN (7-17) mg/dL Creatinine (0.52-1.04) mg/dL Estimated GFR ML/MIN Glucose (74-106) mg/dL Calcium (8.4-10.2) mg/dL Magnesium 2.0 (1.6-2.3) mg/dL Total Bilirubin (0.2-1.3) mg/dL AST (14-36) U/L ALT (0-35) U/L Alkaline Phosphatase (38-126) U/L Troponin I (0.000-0.034) ng/mL NT-Pro-B Natriuret Pep 658 (<300) pg/mL Serum Total Protein (6.3-8.2) g/dL Albumin (3.5-5.0) g/dL Urine Color Yellow (Yellow) Urine Appearance Clear (Clear) Urine pH 7.5 (4.6-8.0) Ur Specific [place] 1.010 (1.005-1.030) Urine Protein Negative (Negative) Urine Glucose (UA) Negative (Negative) mg/dL Urine Ketones Negative (Negative) Urine Blood Negative (Negative) Urine Nitrite Negative (Negative) Urine Bilirubin Negative (Negative) Urine Urobilinogen 1.0 A (0.2) mg/dL Ur Leukocyte Esterase Trace A (Negative) U Hyaline Cast (Auto) NONE SEEN (0-2) /LPF Urine Microscopic RBC 0-2 (0-5) /HPF Urine Microscopic WBC 0-2 (0-5) /HPF Ur Epithelial Cells None Seen (None Seen) /HPF Urine Bacteria None Seen (None Seen) /HPF Urine Culture Reflexed NO (NO) 07/14/22 07/15/22 07/15/22 Range/Units 23:45 05:30 05:30 WBC 6.9 (4.0-10.5) x10^3/uL RBC 4.09 L (4.1-5.4) x10^6/uL Hgb 12.7 (12.0-16.0) g/dL Hct 39.0 (35-47) % MCV 95.4 (78-100) fL MCH 31.1 (26-32) pg MCHC 32.6 (32-36) g/dL RDW 13.5 (11.5-14.0) % Plt Count 283 (150-450) x10^3/uL MPV 9.7 (7.5-11.0) fL Gran % 49.8 (36.0-66.0) % Immature Gran % (Auto) 1.0 H (0.00-0.4) % Nucleat RBC Rel Count 0.0 (0.00-0.1) % Eos # (Auto) 0.12 (0-0.5) x10^3/uL Immature Gran # (Auto) 0.07 H (0.00-0.03) x10^3u/L Absolute Lymphs (auto) 2.54 (1.0-4.6) x10^3/uL Absolute Monos (auto) 0.67 (0.0-1.3) x10^3/uL Absolute Nucleated RBC 0.00 (0.00-0.01) x10^3u/L Lymphocytes % 37.0 (24.0-44.0) % Monocytes % 9.8 (0.0-12.0) % Eosinophils % 1.7 (0.00-5.0) % Basophils % 0.7 (0.0-0.4) % Absolute Granulocytes 3.41 (1.4-6.9) x10^3/uL Basophils # 0.05 (0-0.4) x10^3/uL Sodium 135 L (137-145) mmol/L Potassium 4.5 (3.5-5.1) mmol/L Chloride 102 (98-107) mmol/L Carbon Dioxide 25 (22-30) mmol/L Anion Gap 12.0 (5-15) MEQ/L BUN 35 H (7-17) mg/dL Creatinine 1.65 H (0.52-1.04) mg/dL Estimated GFR 31.1 ML/MIN Glucose 78 (74-106) mg/dL Calcium 9.2 (8.4-10.2) mg/dL Magnesium (1.6-2.3) mg/dL Total Bilirubin 0.80 (0.2-1.3) mg/dL AST 32 (14-36) U/L ALT 36 H (0-35) U/L Alkaline Phosphatase 74 (38-126) U/L Troponin I < 0.012 (0.000-0.034) ng/mL NT-Pro-B Natriuret Pep (<300) pg/mL Serum Total Protein 5.9 L (6.3-8.2) g/dL Albumin 3.2 L (3.5-5.0) g/dL Urine Color (Yellow) Urine Appearance (Clear) Urine pH (4.6-8.0) Ur Specific [place] (1.005-1.030) Urine Protein (Negative) Urine Glucose (UA) (Negative) mg/dL Urine Ketones (Negative) Urine Blood (Negative) Urine Nitrite (Negative) Urine Bilirubin (Negative) Urine Urobilinogen (0.2) mg/dL Ur Leukocyte Esterase (Negative) U Hyaline Cast (Auto) (0-2) /LPF Urine Microscopic RBC (0-5) /HPF Urine Microscopic WBC (0-5) /HPF Ur Epithelial Cells (None Seen) /HPF Urine Bacteria (None Seen) /HPF Urine Culture Reflexed (NO) - Radiology Impressions Radiology Exams & Impressions: Radiology Procedures Category Date Time Status CHEST 1 VIEW (PORTABLE) Stat Exams 07/14/22 19:39 Completed HEAD WITHOUT CONTRAST [CT] Stat Exams 07/14/22 19:39 Completed - Other Procedures and Tests Respiratory Therapy 07/15/22 00:38 Respiratory Therapy Assessment DAILY Assessment/Plan (1) Hypotension due to hypovolemia Current Visit: Yes Status: Acute Assessment & Plan: resolved, renal function back to baseline with hydration Code(s): I95.89 - OTHER HYPOTENSION; E86.1 - HYPOVOLEMIA (2) Generalized weakness Current Visit: Yes Status: Acute Code(s): R53.1 - WEAKNESS (3) Atrial fibrillation Current Visit: No Status: Acute Code(s): I48.91 - UNSPECIFIED ATRIAL FIBRILLATION Hospital Summary - Vitals & Intake/Output Vital Signs: Vital Signs Temperature 96.9 F 07/15/22 08:00 Pulse Rate 58 L 07/15/22 08:00 Respiratory Rate 19 07/15/22 08:00 Blood Pressure 133/62 07/15/22 08:00 O2 Sat by Pulse Oximetry 93 L 07/15/22 08:00 Intake & Output: Intake & Output 07/12/22 07/13/22 07/14/22 07/15/22 11:59 11:59 11:59 11:59 Intake Total 260 Output Total 400 Balance -140 Weight 74.1 kg - Lab Result Diagrams: 07/15/22 05:30 07/15/22 05:30 Lab Results-Last 24 Hrs: Lab Results-Last 24 Hours 07/14/22 07/14/22 07/14/22 Range/Units 19:39 20:05 20:05 WBC 8.0 (4.0-10.5) x10^3/uL RBC 4.43 (4.1-5.4) x10^6/uL Hgb 13.9 (12.0-16.0) g/dL Hct 42.2 (35-47) % MCV 95.3 (78-100) fL MCH 31.4 (26-32) pg MCHC 32.9 (32-36) g/dL RDW 13.5 (11.5-14.0) % Plt Count 298 (150-450) x10^3/uL MPV 9.5 (7.5-11.0) fL Gran % 56.0 (36.0-66.0) % Immature Gran % (Auto) 1.3 H (0.00-0.4) % Nucleat RBC Rel Count 0.0 (0.00-0.1) % Eos # (Auto) 0.13 (0-0.5) x10^3/uL Immature Gran # (Auto) 0.10 H (0.00-0.03) x10^3u/L Absolute Lymphs (auto) 2.40 (1.0-4.6) x10^3/uL Absolute Monos (auto) 0.82 (0.0-1.3) x10^3/uL Absolute Nucleated RBC 0.00 (0.00-0.01) x10^3u/L Lymphocytes % 30.0 (24.0-44.0) % Monocytes % 10.3 (0.0-12.0) % Eosinophils % 1.6 (0.00-5.0) % Basophils % 0.8 (0.0-0.4) % Absolute Granulocytes 4.48 (1.4-6.9) x10^3/uL Basophils # 0.06 (0-0.4) x10^3/uL Sodium 133 L (137-145) mmol/L Potassium 4.7 (3.5-5.1) mmol/L Chloride 98 (98-107) mmol/L Carbon Dioxide 25 (22-30) mmol/L Anion Gap 15.0 (5-15) MEQ/L BUN 40 H (7-17) mg/dL Creatinine 1.90 H (0.52-1.04) mg/dL Estimated GFR 26.5 ML/MIN Glucose 158 H (74-106) mg/dL Calcium 9.6 (8.4-10.2) mg/dL Magnesium (1.6-2.3) mg/dL Total Bilirubin 0.70 (0.2-1.3) mg/dL AST 39 H (14-36) U/L ALT 43 H (0-35) U/L Alkaline Phosphatase 102 (38-126) U/L Troponin I < 0.012 (0.000-0.034) ng/mL NT-Pro-B Natriuret Pep (<300) pg/mL Serum Total Protein 6.8 (6.3-8.2) g/dL Albumin 3.8 (3.5-5.0) g/dL Urine Color (Yellow) Urine Appearance (Clear) Urine pH (4.6-8.0) Ur Specific [place] (1.005-1.030) Urine Protein (Negative) Urine Glucose (UA) (Negative) mg/dL Urine Ketones (Negative) Urine Blood (Negative) Urine Nitrite (Negative) Urine Bilirubin (Negative) Urine Urobilinogen (0.2) mg/dL Ur Leukocyte Esterase (Negative) U Hyaline Cast (Auto) (0-2) /LPF Urine Microscopic RBC (0-5) /HPF Urine Microscopic WBC (0-5) /HPF Ur Epithelial Cells (None Seen) /HPF Urine Bacteria (None Seen) /HPF Urine Culture Reflexed (NO) 07/14/22 07/14/22 07/14/22 Range/Units 20:05 20:05 20:44 WBC (4.0-10.5) x10^3/uL RBC (4.1-5.4) x10^6/uL Hgb (12.0-16.0) g/dL Hct (35-47) % MCV (78-100) fL MCH (26-32) pg MCHC (32-36) g/dL RDW (11.5-14.0) % Plt Count (150-450) x10^3/uL MPV (7.5-11.0) fL Gran % (36.0-66.0) % Immature Gran % (Auto) (0.00-0.4) % Nucleat RBC Rel Count (0.00-0.1) % Eos # (Auto) (0-0.5) x10^3/uL Immature Gran # (Auto) (0.00-0.03) x10^3u/L Absolute Lymphs (auto) (1.0-4.6) x10^3/uL Absolute Monos (auto) (0.0-1.3) x10^3/uL Absolute Nucleated RBC (0.00-0.01) x10^3u/L Lymphocytes % (24.0-44.0) % Monocytes % (0.0-12.0) % Eosinophils % (0.00-5.0) % Basophils % (0.0-0.4) % Absolute Granulocytes (1.4-6.9) x10^3/uL Basophils # (0-0.4) x10^3/uL Sodium (137-145) mmol/L Potassium (3.5-5.1) mmol/L Chloride (98-107) mmol/L Carbon Dioxide (22-30) mmol/L Anion Gap (5-15) MEQ/L BUN (7-17) mg/dL Creatinine (0.52-1.04) mg/dL Estimated GFR ML/MIN Glucose (74-106) mg/dL Calcium (8.4-10.2) mg/dL Magnesium 2.0 (1.6-2.3) mg/dL Total Bilirubin (0.2-1.3) mg/dL AST (14-36) U/L ALT (0-35) U/L Alkaline Phosphatase (38-126) U/L Troponin I (0.000-0.034) ng/mL NT-Pro-B Natriuret Pep 658 (<300) pg/mL Serum Total Protein (6.3-8.2) g/dL Albumin (3.5-5.0) g/dL Urine Color Yellow (Yellow) Urine Appearance Clear (Clear) Urine pH 7.5 (4.6-8.0) Ur Specific [place] 1.010 (1.005-1.030) Urine Protein Negative (Negative) Urine Glucose (UA) Negative (Negative) mg/dL Urine Ketones Negative (Negative) Urine Blood Negative (Negative) Urine Nitrite Negative (Negative) Urine Bilirubin Negative (Negative) Urine Urobilinogen 1.0 A (0.2) mg/dL Ur Leukocyte Esterase Trace A (Negative) U Hyaline Cast (Auto) NONE SEEN (0-2) /LPF Urine Microscopic RBC 0-2 (0-5) /HPF Urine Microscopic WBC 0-2 (0-5) /HPF Ur Epithelial Cells None Seen (None Seen) /HPF Urine Bacteria None Seen (None Seen) /HPF Urine Culture Reflexed NO (NO) 07/14/22 07/15/22 07/15/22 Range/Units 23:45 05:30 05:30 WBC 6.9 (4.0-10.5) x10^3/uL RBC 4.09 L (4.1-5.4) x10^6/uL Hgb 12.7 (12.0-16.0) g/dL Hct 39.0 (35-47) % MCV 95.4 (78-100) fL MCH 31.1 (26-32) pg MCHC 32.6 (32-36) g/dL RDW 13.5 (11.5-14.0) % Plt Count 283 (150-450) x10^3/uL MPV 9.7 (7.5-11.0) fL Gran % 49.8 (36.0-66.0) % Immature Gran % (Auto) 1.0 H (0.00-0.4) % Nucleat RBC Rel Count 0.0 (0.00-0.1) % Eos # (Auto) 0.12 (0-0.5) x10^3/uL Immature Gran # (Auto) 0.07 H (0.00-0.03) x10^3u/L Absolute Lymphs (auto) 2.54 (1.0-4.6) x10^3/uL Absolute Monos (auto) 0.67 (0.0-1.3) x10^3/uL Absolute Nucleated RBC 0.00 (0.00-0.01) x10^3u/L Lymphocytes % 37.0 (24.0-44.0) % Monocytes % 9.8 (0.0-12.0) % Eosinophils % 1.7 (0.00-5.0) % Basophils % 0.7 (0.0-0.4) % Absolute Granulocytes 3.41 (1.4-6.9) x10^3/uL Basophils # 0.05 (0-0.4) x10^3/uL Sodium 135 L (137-145) mmol/L Potassium 4.5 (3.5-5.1) mmol/L Chloride 102 (98-107) mmol/L Carbon Dioxide 25 (22-30) mmol/L Anion Gap 12.0 (5-15) MEQ/L BUN 35 H (7-17) mg/dL Creatinine 1.65 H (0.52-1.04) mg/dL Estimated GFR 31.1 ML/MIN Glucose 78 (74-106) mg/dL Calcium 9.2 (8.4-10.2) mg/dL Magnesium (1.6-2.3) mg/dL Total Bilirubin 0.80 (0.2-1.3) mg/dL AST 32 (14-36) U/L ALT 36 H (0-35) U/L Alkaline Phosphatase 74 (38-126) U/L Troponin I < 0.012 (0.000-0.034) ng/mL NT-Pro-B Natriuret Pep (<300) pg/mL Serum Total Protein 5.9 L (6.3-8.2) g/dL Albumin 3.2 L (3.5-5.0) g/dL Urine Color (Yellow) Urine Appearance (Clear) Urine pH (4.6-8.0) Ur Specific [place] (1.005-1.030) Urine Protein (Negative) Urine Glucose (UA) (Negative) mg/dL Urine Ketones (Negative) Urine Blood (Negative) Urine Nitrite (Negative) Urine Bilirubin (Negative) Urine Urobilinogen (0.2) mg/dL Ur Leukocyte Esterase (Negative) U Hyaline Cast (Auto) (0-2) /LPF Urine Microscopic RBC (0-5) /HPF Urine Microscopic WBC (0-5) /HPF Ur Epithelial Cells (None Seen) /HPF Urine Bacteria (None Seen) /HPF Urine Culture Reflexed (NO) - Radiology Exams Ordered Rad Exams-Entire Visit: Radiology Procedures Category Date Time Status CHEST 1 VIEW (PORTABLE) Stat Exams 07/14/22 19:39 Completed HEAD WITHOUT CONTRAST [CT] Stat Exams 07/14/22 19:39 Completed - Procedures and Test Procedures and Tests throughout Hospitalization: Therapy Orders & Screens 07/15/22 00:38 Respiratory Therapy Assessment DAILY Comment: Diagnosis: generalized weakness, acute on chronic renal failure 07/15/22 07:00 Respiratory MDI BID Comment: Diagnosis: generalized weakness, acute on chronic renal failure - Discharge Disposition: Home, Self-Care Condition: Stable Prescriptions: Continue Atorvastatin Calcium [Lipitor] 40 mg PO HS Losartan Potassium 50 mg [Cozaar 50 MG] 100 mg PO DAILY Aspirin 81 mg PO HS Rivaroxaban 10 mg Tablet [Xarelto 10 mg Tablet] 15 mg PO DAILY Polyethylene Glycol 3350 [Miralax] 17 gm PO DAILY PRN PRN Reason: Constipation Solifenacin Succinate [Vesicare] 10 mg PO DAILY PRN PRN PRN Reason: bladder Amiodarone HCl 200 mg [Cordarone 200 MG] 200 mg PO DAILY Zonisamide 100 mg PO HS Fluticasone/Umeclidin/Vilanter [Trelegy Ellipta 100-62.5-25] 1 each IH DAILY Levothyroxine Sodium 75 Mcg [Synthroid 75 Mcg] 75 mcg PO DAILY Metoprolol Succinate 25 mg Xl* [Toprol-Xl 25MG Tablets] 100 mg PO DAILY Hydralazine HCl 20 mg PO TID Discontinued Spironolactone 25 mg [Aldactone 25 MG] 25 mg PO DAILY Follow up with: YANET COFFMAN MD [Primary Care Provider] -
== END 2022-07-15 10:54 | disposition home or self-care (01) ==
LOC: ED 19:17 → MED SURG 22:47
PROVIDERS: ADMIT Family Medicine; ATTEND Family Medicine
DX: I95.89 Other hypotension (principal); E86.1 Hypovolemia; R53.1 Weakness; I48.91 Unspecified atrial fibrillation; I12.9 Hypertensive chronic kidney disease with stage 1 through stage 4 chronic kidney disease, or unspecified chronic kidney disease; N18.9 Chronic kidney disease, unspecified; E03.9 Hypothyroidism, unspecified; E78.5 Hyperlipidemia, unspecified; Z79.01 Long term (current) use of anticoagulants; Z79.899 Other long term (current) drug therapy; Z20.828 Contact with and (suspected) exposure to other viral communicable diseases
CPT/HCPCS: 36000; 36415; 70450; 71045; 80053; 81001; 83735; 83880; 84484; 85025; 93005; 93268; 94640; 94762; 96360; 96374; 96375; 99285; G0378; J1200; A9270-GY